=== PATIENT | male | born 1955 | race Caucasian/White ===

== ENCOUNTER 2018-12-31 11:40 | Day surgery (SDC) | payer MEDICARE ==
[~2018-12-31] VITALS: Ht 175.3 cm; Wt 112.0 kg
[~2018-12-31 11:40] MED LIST: CEPH500 PO; HYDACE5 PO; IBUP800 PO
[2018-12-31 11:58] LABS: BASOPHILS ABSOLUTE AUTO 0.06 K/mm3 (0.00-0.23); BASOPHILS PERCENT AUTO 1 % (0-2); EOSINOPHILS ABSOLUTE AUTO 0.21 K/mm3 (0.00-0.68); EOSINOPHILS PERCENT AUTO 2 % (0-6); Hematocrit 37.7 % (37.0-53.0); Hemoglobin 12.6 g/dL (13.5-17.5); IMMATURE GRAN ABSOLUTE AUTO 0.04 K/mm3 (0.00-0.10); IMMATURE GRAN PERCENT AUTO 0 % (0-1); LYMPHOCYTES ABSOLUTE AUTO 3.24 K/mm3 (0.84-5.20); LYMPHOCYTES PERCENT AUTO 27 % (21-46); MONOCYTES ABSOLUTE AUTO 0.97 K/mm3 (0.16-1.47); MONOCYTES PERCENT AUTO 8 % (4-13); Mean Corpuscular HGB 34.7 pg (26.0-34.0); Mean Corpuscular HGB Conc 33.4 g/dL (31.5-36.5); Mean Corpuscular Volume 104 fL (80-100); Mean Platelet Volume 9.8 fL (9.1-12.4); NEUTROPHILS ABSOLUTE AUTO 7.31 K/mm3 (1.96-9.15); NEUTROPHILS PERCENT AUTO 62 % (41-73); Platelet Count 206 K/mm3 (150-400); RDW Coefficient Variation 12.3 % (11.7-14.2); RDW Standard Deviation 47.7 fL (35.1-46.3); Red Blood Cell Count 3.63 M/mm3 (4.30-5.90); White Blood Cell Count 11.83 K/mm3 (4.00-11.30)
[2018-12-31 12:13] LABS: International Normalized Ratio 0.95; Prothrombin Time Results 10.1 Sec (9.7-11.5)
[2018-12-31] MEDS ORDERED: LISI20 PO (12:54)
[2018-12-31] MEDS ORDERED: HYDCHL25 PO (12:55)
[2018-12-31] MEDS ORDERED: ZESTRIL40 MG PO (12:55)
[2018-12-31] MEDS ORDERED: VITAMIN D-32000 UNIT PO (12:56)
[2018-12-31] MEDS ORDERED: Wellbutrin Sr200 MG PO (12:56)
[2018-12-31] MEDS ORDERED: DICL75ER PO (12:56)
[2018-12-31] MEDS ORDERED: Zocor20 MG PO (12:57)
[2018-12-31 13:14] LABS: Bun/Creatinine Ratio 17.5 (12.0-20.0); Calcium, Blood 9.3 mg/dL (8.5-10.1); Creatinine, Blood 1.43 mg/dL (0.60-1.20); Potassium, Blood 4.3 mmol/L (3.5-5.5)
--- NOTE | 2018-12-31 14:41 | NUR ---
FENTANYL 50 MCG AND VERSED 1 MG IV GIVEN FOR 10/10 RIGHT FOOT PAIN.
--- NOTE | 2018-12-31 15:04 | NUR ---
FENTANYL 50 CMG IV AND VERSED 1 MG IV GIVEN FOR 10/10 RIGHT FOOT PAIN.
--- NOTE | 2018-12-31 18:08 | NUR ---
The pt arrived from the heart center at 1750, into room PCU 9. Left groin was visualized, and noted to be without bleeding, bruising, hematoma, or swelling. Distal pulses on the right foot were doppled by Dr. Campbell in the room at 1805. The pt is awake, alert, oriented, cooperative, and without any voiced needs or complaints. States that his left foot is much less painful than it was before the procedure. Pt was educated regarding bedrest for 2 hours and plan for discharge in 3 hours.
--- NOTE | 2018-12-31 18:23 | NUR ---
Distal pulses checked by doppler, left groin site also checked. NO changes from prior assessment. Right foot has cyanosis of the first 2 toes, and the pt states that his right fooot is very tender, even to the doppler touch.
--- NOTE | 2018-12-31 18:46 | NUR ---
LEFT GROIN SITE WITHOUT CHANGES. DISTAL PULSES NOTED BY DOPPLER, NO CHANGES NOTED. CYANOSIS REMAINS UNCHANGED FROM WHEN DR. RAWLS WAS HERE TO SEE THE PT POST OP.
--- NOTE | 2018-12-31 19:29 | NUR ---
Distal pulses in the right foot are doppled, cyanosis of the toes remains. Pt states tenderness in the right foot. Left groin site remains unchanged from previous assessments. Left foot is unremarkable, with pink toes, warmth, and brisk cap refill. Pt states he has had a prior revascularization of the left leg before this procedure. Pt had dinner, ate with a good appetite. States that he is eager to go home this evening. States that he has to get someone to a cancer procudure tomorrow. The pt was told that the doctor has prescribed Xarelto for him, which he should start to take tomorrow morning. The pt stated that he will start it tomorrow whenever he gets around to picking it up. States that he has taken xarelto in the past and that he is familiar with it.
[2018-12-31] MEDS ORDERED: XARELTO2.5 MG PO (20:02)
--- NOTE | 2018-12-31 20:55 | NUR ---
PATIENT AMBULATED AND GROIN SITE CHECKED PATIENT AMBULATED 50 YARDS X2, SAT UP IN CHAIR WITH NO CHANGES TO THE R GROIN SITE. NO HEMATOMA, SWELLING, BRUISING OR BLEEDING NOTED. PT DENIES PAIN ON PALPATION AROUND SITE AND ABDOMEN. EDUCATED ON ADVERSE REACTIONS AND GROIN SITE COMPLICATIONS. PT VERBALIZED UNDERSTANDING.
--- NOTE | 2018-12-31 21:21 | NUR ---
DISCHARGE NOTE: ASSUMED CARE OF PATIENT AT APPROXIMATELY 1900 FROM RK Teague RN. PATIENT S/P LEFT GROIN FEMORAL ACCESS FOR REVASC IN RIGHT LEG. NSR ON TELE; OXYGEN SATURATION ABOVE 90% ON ROOM AIR. LEFT GROIN SITE WNL; NO BLEEING, HEMATOMA OR BRUISING NOTED; SOFT AND NONTENDER. PATIENT EXTENDED RECOVERY UNTIL 2099; DISCHARGE ORDER IN PLACE. SEE PREVIOUS NURSING NOTE FOR AMBULATION BY CONSUMER SALES REPRESENTATIVE AND OTHER RN CASSANDRA. PATIENT'S RIGHT FOOT PURPLE; PUSLES ONLY BY DOPPLER. PATIENT REPORTS FOOT PAIN GREATLY REDUCED AFTER SURGERY TODAY. PIV S/L AFTER NS INFUSED; REMOVED BY THIS RN BEFORE DISCHARGE. THIS RN WENT OVER DISCHARGE INSTRUCTIONS, MEDICATIONS AND FEMORAL ACCESS CARE INSTRUCTIONS; ALL SIGNED BY PATIENT; NO QUESTIONS. PATIENT ESCORTED OUT OF UNIT VIA WHEEL CHAIR BY THIS RN WITH DISCHARGE PACKET AND ALL BELONGINGS. EX PICKED PATIENT UP.
== END 2018-12-31 21:13 | disposition home or self-care (01) ==
LOC: MHTC 11:40 → PCU 18:08 → MHTC 21:13 → PCU 21:13
PROVIDERS: Radiology Diagnostic Radiology
PROC: 047K3D1 Dilation of Right Femoral Artery with Intraluminal Device, using Drug-Coated Balloon, Percutaneous Approach (ICD-10-PCS; principal; 2018-12-31)
PROC: 047P3ZZ Dilation of Right Anterior Tibial Artery, Percutaneous Approach (ICD-10-PCS; 2018-12-31)
DX: I70.203 Unspecified atherosclerosis of native arteries of extremities, bilateral legs (principal); I10 Essential (primary) hypertension; I70.0 Atherosclerosis of aorta; E78.5 Hyperlipidemia, unspecified; J44.9 Chronic obstructive pulmonary disease, unspecified; F17.210 Nicotine dependence, cigarettes, uncomplicated; E66.9 Obesity, unspecified; Z79.899 Other long term (current) drug therapy; Z68.36 Body mass index [BMI] 36.0-36.9, adult
CPT/HCPCS: 36415; 37224; 37228; 75625; 75716; 75774; 80048; 85025; 85610; 99152; 99153; C1725; C1760; C1769; C1887; C1894; C2623; J0360; J1644; J2250; J3010; J7030; Q9967

== ENCOUNTER 2019-01-16 15:07 | Inpatient (IN) | payer MEDICARE, OTHER ==
[~2019-01-16] VITALS: Ht 177.8 cm; Wt 112.0 kg
[~2019-01-16 15:07] MED LIST changes: +Cephalexin500 M1 PO; +DICL75ER PO; +HYDCHL25 PO; +Simvastatin40 MG PO; +VITAMIN D-32000 UNIT PO; +Wellbutrin Sr200 MG PO; +XARELTO2.5 MG PO; +ZESTRIL40 MG PO
[2019-01-16 15:57] LABS: BASOPHILS ABSOLUTE AUTO 0.04 K/mm3 (0.00-0.23); BASOPHILS PERCENT AUTO 0 % (0-2); EOSINOPHILS ABSOLUTE AUTO 0.16 K/mm3 (0.00-0.68); EOSINOPHILS PERCENT AUTO 2 % (0-6); Hematocrit 31.8 % (37.0-53.0); Hemoglobin 10.8 g/dL (13.5-17.5); IMMATURE GRAN ABSOLUTE AUTO 0.04 K/mm3 (0.00-0.10); IMMATURE GRAN PERCENT AUTO 0 % (0-1); LYMPHOCYTES ABSOLUTE AUTO 2.58 K/mm3 (0.84-5.20); LYMPHOCYTES PERCENT AUTO 25 % (21-46); MONOCYTES ABSOLUTE AUTO 0.87 K/mm3 (0.16-1.47); MONOCYTES PERCENT AUTO 8 % (4-13); Mean Corpuscular HGB 33.9 pg (26.0-34.0); Mean Corpuscular Volume 100 fL (80-100); Mean Platelet Volume 9.3 fL (9.1-12.4); NEUTROPHILS ABSOLUTE AUTO 6.63 K/mm3 (1.96-9.15); NEUTROPHILS PERCENT AUTO 64 % (41-73); Platelet Count 284 K/mm3 (150-400); RDW Coefficient Variation 11.9 % (11.7-14.2); RDW Standard Deviation 43.8 fL (35.1-46.3); Red Blood Cell Count 3.19 M/mm3 (4.30-5.90); White Blood Cell Count 10.32 K/mm3 (4.00-11.30)
[2019-01-16 16:28] LABS: Alanine Aminotransfer (ALT/SGP 90 U/L (12-78); Albumin, Blood 3.2 g/dL (3.4-5.0); Albumin/Globulin Ratio 0.8 (0.8-1.8); Alk Phos 81 U/L (50-136); Anion Gap 7 mmol/L (6-16); Aspartate Aminotrans (AST/SGOT 84 U/L (12-37); Bilirubin, Total 0.2 mg/dL (0.1-1.0); Blood Urea Nitrogen 27 mg/dL (8-24); Bun/Creatinine Ratio 25.2 (12.0-20.0); CO2, Blood 27 mmol/L (21-32); Calcium, Blood 9.1 mg/dL (8.5-10.1); Chloride, Blood 92 mmol/L (98-108); Creatinine, Blood 1.07 mg/dL (0.60-1.20); Glomerular Filtration Rate >60 (60-); Glucose, Blood 98 mg/dL (70-99); Potassium, Blood 4.2 mmol/L (3.5-5.5); Sodium, Blood 126 mmol/L (136-145); Total Protein, Blood 7.2 g/dL (6.4-8.2)
[2019-01-16] MEDS ORDERED: ALBU90OI INH (18:01)
[2019-01-16] MEDS ORDERED: HYDR1TAB94 PO (18:09)
--- NOTE | 2019-01-16 21:11 | NUR ---
ADMISSION: PATIENT IS RECIEVED FROM ER VIA STRETCHER, ABLE TO STAND AND PIVOT TO THE BED. ORIENTED TO ROOM AND CALL GARCIA. RATING PAIN IN RIGHT FOOT.
--- NOTE | 2019-01-16 23:35 | NUR ---
PAIN: NORCO WAS GIVEN FOR PAIN WITH FAIR EFFECT. PATIENT DENIES NEED OF MORE PAIN MEDICATION AT THIS TIME AND IS RESTING IN BED WITH EYE'S CLOSED.
--- NOTE | 2019-01-17 02:22 | NUR ---
PAIN/LABS: PATIENT HAD FAIR EFFECT FROM ORAL PAIN MEDICATION. IT IS ALSO NOTIED THAT SODIUM IS 126. PATIENT REQUESTED COUGH DROPS FOR SMOKERS COUGH. SERAFIN RICCI SHIP ENGINES OPERATING ENGINEER WAS NOTIFIED OF ABOVE AND ORDERS FOR PRN COUGH GTT, IV DILAUDID 0.5 MG X1 AND MONITOR SODIUM LEVEL AT THIS TIME.
[2019-01-17 06:01] LABS: Alanine Aminotransfer (ALT/SGP 79 U/L (12-78); Albumin, Blood 3.1 g/dL (3.4-5.0); Albumin/Globulin Ratio 0.8 (0.8-1.8); Alk Phos 79 U/L (50-136); Anion Gap 8 mmol/L (6-16); Aspartate Aminotrans (AST/SGOT 69 U/L (12-37); Bilirubin, Total 0.2 mg/dL (0.1-1.0); Blood Urea Nitrogen 28 mg/dL (8-24); Bun/Creatinine Ratio 22.2 (12.0-20.0); CO2, Blood 27 mmol/L (21-32); Chloride, Blood 93 mmol/L (98-108); Creatinine, Blood 1.26 mg/dL (0.60-1.20); Globulin, Blood 3.9 g/dL (2.2-4.0); Glomerular Filtration Rate >60 (60-); Glucose, Blood 88 mg/dL (70-99); Potassium, Blood 4.3 mmol/L (3.5-5.5); Sodium, Blood 128 mmol/L (136-145)
--- NOTE | 2019-01-17 07:32 | NUR ---
SHIFT SUMMARY: PATIENT CONTINUES TO REPORT R FOOT PAIN WITH INTERMITTENT SPIKES UP TO 10/10, SPIKES OCCURING WITH ACTIVITY. URINAL WAS GIVEN AND BEST REST WAS ENCOURAGED BUT PATIENT REFUSES AND USED BATHROOM TO VOID. SODIUM THIS AM IS 128, PATIENT REMAINS ASYMPTOMATIC.
--- NOTE | 2019-01-17 17:50 | NUR ---
PATIENT IS ALERT AND ORIENTED AND COOPERATIVE WITH CARE. HE CALLS APPROPRIATELY. DR. BLACKWELL SAW THE PATIENT THIS AFTERNOON, HE ASKED DR. CAMPBELL TO CONSULT THE PATIENT. DR. CAMPBELL IS GOING TO PERFORM A BKA ON THE PATIENT TOMORROW MID MORNING. THIS PATIENT WILL BE NPO AFTER MIDNIGHT. HE HAS AGREED TO THE PROCEDURE. PATIENT COMPLAINS OF PAIN IN HIS RIGHT FOOT, TREATED PER EMAR. WILL CONTINUE TO MONITOR.
[2019-01-18 05:30] LABS: BASOPHILS ABSOLUTE AUTO 0.04 K/mm3 (0.00-0.23); BASOPHILS PERCENT AUTO 1 % (0-2); EOSINOPHILS PERCENT AUTO 3 % (0-6); Hematocrit 31.8 % (37.0-53.0); Hemoglobin 10.8 g/dL (13.5-17.5); IMMATURE GRAN ABSOLUTE AUTO 0.03 K/mm3 (0.00-0.10); IMMATURE GRAN PERCENT AUTO 0 % (0-1); LYMPHOCYTES ABSOLUTE AUTO 2.01 K/mm3 (0.84-5.20); LYMPHOCYTES PERCENT AUTO 25 % (21-46); MONOCYTES PERCENT AUTO 10 % (4-13); Mean Corpuscular Volume 100 fL (80-100); Mean Platelet Volume 9.4 fL (9.1-12.4); NEUTROPHILS ABSOLUTE AUTO 4.88 K/mm3 (1.96-9.15); NEUTROPHILS PERCENT AUTO 61 % (41-73); Platelet Count 254 K/mm3 (150-400); RDW Coefficient Variation 11.9 % (11.7-14.2); RDW Standard Deviation 43.8 fL (35.1-46.3); Red Blood Cell Count 3.18 M/mm3 (4.30-5.90); White Blood Cell Count 7.96 K/mm3 (4.00-11.30)
[2019-01-18 05:54] LABS: Anion Gap 8 mmol/L (6-16); Blood Urea Nitrogen 27 mg/dL (8-24); Bun/Creatinine Ratio 23.9 (12.0-20.0); CO2, Blood 26 mmol/L (21-32); Calcium, Blood 9.1 mg/dL (8.5-10.1); Chloride, Blood 95 mmol/L (98-108); Creatinine, Blood 1.13 mg/dL (0.60-1.20); Glomerular Filtration Rate >60 (60-); Glucose, Blood 93 mg/dL (70-99); Potassium, Blood 4.8 mmol/L (3.5-5.5); Sodium, Blood 129 mmol/L (136-145)
--- NOTE | 2019-01-18 08:20 | NUR ---
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 PT is smokere cessation encouraged. Lung sound coarse and wheezy. PT mediucated several times for RT le pain with helpful effect. Was discussing hope to recover from procedure and get on with life.
--- NOTE | 2019-01-18 11:01 | NUR ---
PT LEFT UNIT VIA BED AT 1015 FOR SURGICAL PROCEDURE.
--- NOTE | 2019-01-18 13:55 | NUR ---
PT ARRIVED TO UNIT AT APROX 1330 FROM PACU. RECIEVED REPORT FROM MED FLOOR RN AND VEHICLE ASSEMBLER. POST OP R BKA, DRESSING C/D/I. PT DENIES PAIN AT THIS TIME.
--- NOTE | 2019-01-18 14:19 | NUR ---
REPORT GIVEN TO SURGICAL FLOOR RNGUILLERMO.
[2019-01-18 15:04] LABS: Percent Saturation 19.2 % (20.0-50.0)
--- NOTE | 2019-01-18 18:02 | NUR ---
SHIFT SUMMARY PT POD 0 R BKA, STUMP SOCK C/D/I. PT MEDICATED ONCE FOR PAIN PER EMAR. PT EVAL THIS AFTERNOON-ABLE TO INDEPENDENTLY AMBULATE WITH FWW IN ROOM PER EVAL.
--- NOTE | 2019-01-19 02:20 | NUR ---
PATIENT IS UP WITH FWW AND STANDBY ASSIST AT RAIL OPERATIONS CONTROLLER AND RN REQUEST. HE IS STEADY AND IS ABLE TO BALANCE ON HIS LT LEG VERY WELL. RT BKA STUMP IS CLEAR OF ANY DRAINAGE.
[2019-01-19 04:20] LABS: BASOPHILS ABSOLUTE AUTO 0.03 K/mm3 (0.00-0.23); BASOPHILS PERCENT AUTO 0 % (0-2); EOSINOPHILS ABSOLUTE AUTO 0.01 K/mm3 (0.00-0.68); EOSINOPHILS PERCENT AUTO 0 % (0-6); Hematocrit 29.1 % (37.0-53.0); Hemoglobin 9.6 g/dL (13.5-17.5); IMMATURE GRAN ABSOLUTE AUTO 0.04 K/mm3 (0.00-0.10); IMMATURE GRAN PERCENT AUTO 0 % (0-1); LYMPHOCYTES PERCENT AUTO 21 % (21-46); MONOCYTES ABSOLUTE AUTO 0.98 K/mm3 (0.16-1.47); MONOCYTES PERCENT AUTO 9 % (4-13); Mean Corpuscular HGB 33.6 pg (26.0-34.0); Mean Corpuscular Volume 102 fL (80-100); Mean Platelet Volume 9.3 fL (9.1-12.4); NEUTROPHILS ABSOLUTE AUTO 7.15 K/mm3 (1.96-9.15); NEUTROPHILS PERCENT AUTO 69 % (41-73); Platelet Count 221 K/mm3 (150-400); RDW Coefficient Variation 12.2 % (11.7-14.2); Red Blood Cell Count 2.86 M/mm3 (4.30-5.90); White Blood Cell Count 10.41 K/mm3 (4.00-11.30)
[2019-01-19 04:49] LABS: Anion Gap 6 mmol/L (6-16); Blood Urea Nitrogen 25 mg/dL (8-24); Bun/Creatinine Ratio 23.6 (12.0-20.0); CO2, Blood 28 mmol/L (21-32); Calcium, Blood 8.6 mg/dL (8.5-10.1); Chloride, Blood 98 mmol/L (98-108); Creatinine, Blood 1.06 mg/dL (0.60-1.20); Glomerular Filtration Rate >60 (60-); Glucose, Blood 98 mg/dL (70-99); Potassium, Blood 4.4 mmol/L (3.5-5.5); Sodium, Blood 132 mmol/L (136-145)
--- NOTE | 2019-01-19 04:49 | NUR ---
PATIENT HAS HAD PAIN CONTROLED WITH PO MEDICATIONS. UP IN ROOM FWW AND WITH VERY LITTLE ASSISTANCE. EATING WITHOUT ISSUES. RT STUMP ELEVATED ON PILLOW WHILE IN BED. DRESSING IS CLEAN AND DRY, STUMP SOCK IS IN PLACE. NO OTHER ACUTE CHANGES.
--- NOTE | 2019-01-19 14:27 | NUR ---
DR KEYES TO SEE PT.
--- NOTE | 2019-01-19 15:53 | NUR ---
SHIFT SUMMARY: PT EATING AND DRINKING, VOIDING, AND PASSING GAS. PT BEEN ASSISTED WITH ADL'S PRN. PT BEEN MED FOR PAIN PRN.
--- NOTE | 2019-01-19 18:54 | NUR ---
PT HAD NO REACTION NOTED WITH TEST DOSE OF IV IRON. DR CAMPBELL HERE AND CHANGED DRESSING TO RLE.
--- NOTE | 2019-01-20 05:05 | NUR ---
SHIFT SUMMARY PT USES FWW WITH STANDBY ASSIST TO BATHROOM. STUMP SOCK IN PLACE, CDI, STUMP ELEVATED. PAIN MANAGED WITH NORCO PRN WITH OXYCODONE FOR BREAKTHROUGH PAIN ONCE. VOIDING WELL. PLAN FOR D/C HOME TODAY WITH HOME HEALTH.
--- NOTE | 2019-01-20 08:14 | NUR ---
PATIENT GAVE CONSENT FOR MECHANICAL ENGINEER TO PARTICIPATE IN CARE.
--- NOTE | 2019-01-20 08:33 | NUR ---
therapy in to see pt.
[2019-01-20] MEDS ORDERED: Norco 10-325 T1 EACH PO (13:22)
[2019-01-20] MEDS ORDERED: XARELTO20 MG PO (13:23)
--- NOTE | 2019-01-20 16:22 | NUR ---
DISCHARGED DC'D IV, CATHETER INTACT. REVIEWED DC PAPERWORK W/PT, ANXIOUS TO LEAVE BUT DID VERBALIZE UNDERSTANDING. LEFT UNIT IN WC W/POSSESSIONS IN HAND. MET RIDE OUTSIDE.
== END 2019-01-20 15:29 | disposition home health service (06) | DRG 240 ==
LOC: ER 15:07 → MEDS 15:08 → SURS 01-18 13:22
PROVIDERS: Internal Medicine; Nurse Practitioner Acute Care; Orthopaedic Surgery; Physician Assistant; ADMIT Internal Medicine
PROC: 3E02340 Introduction of Influenza Vaccine into Muscle, Percutaneous Approach (ICD-10-PCS; 2019-01-16)
PROC: 0Y6H0Z1 Detachment at Right Lower Leg, High, Open Approach (ICD-10-PCS; principal; 2019-01-18 10:30)
DX: I70.261 Atherosclerosis of native arteries of extremities with gangrene, right leg (principal); L03.115 Cellulitis of right lower limb; E87.1 Hypo-osmolality and hyponatremia; I25.10 Atherosclerotic heart disease of native coronary artery without angina pectoris; E78.5 Hyperlipidemia, unspecified; F41.9 Anxiety disorder, unspecified; F17.210 Nicotine dependence, cigarettes, uncomplicated; F32.9 Major depressive disorder, single episode, unspecified; I12.9 Hypertensive chronic kidney disease with stage 1 through stage 4 chronic kidney disease, or unspecified chronic kidney disease; N18.3 Chronic kidney disease, stage 3 (moderate); Z95.5 Presence of coronary angioplasty implant and graft; M19.90 Unspecified osteoarthritis, unspecified site; Z23 Encounter for immunization
CPT/HCPCS: 36415; 73630; 80048; 80053; 82728; 83540; 83550; 83605; 84145; 85025; 88307; 88311; 90686; 96365; 96366; 96375; 97110; 97116; 97162; 97165; 97530; 97535; 99284-25; A9270-GY; G0008; G0378; J0690; J1100; J1170; J1644; J1750; J2250; J2405; J2704; J3010; J7040; J7050; J7120

== ENCOUNTER → 2020-03-01 | Outpatient (CLI) | payer MEDICARE ==
[~2020-03-01] MED LIST changes: +ALBU90OI INH; +HYDR1TAB94 PO; +Norco 10-325 T1 EACH PO; +XARELTO20 MG PO
[2020-03-01 14:01] LABS: CHOL/HDL RATIO 4.7; Cholesterol 235 mg/dL (50-200); HDL Cholesterol 50 mg/dL (>39); LDL/HDL RATIO 2.5; Low Density Lipoprotein Chol 126 mg/dL (0-110); Triglycerides 297 mg/dL (30-160); Very Low Density Lipoprot Chol 59 mg/dL (6-32)
== END | disposition home or self-care (01) ==
LOC: LAB SHORT 11:20
PROVIDERS: Family Medicine
DX: E78.5 Hyperlipidemia, unspecified (principal)
CPT/HCPCS: 80061

== ENCOUNTER → 2021-12-14 | Outpatient (CLI) | payer MEDICARE, OTHER | END | disposition home or self-care (01) | LOC: LAB 14:20 → LAB SHORT 14:20 | DX: T87.43 Infection of amputation stump, right lower extremity (principal) | CPT/HCPCS: 87070; 87075; 87076; 87185; 87205 ==

== ENCOUNTER → 2021-12-16 | Outpatient (CLI) | payer MEDICARE | END | disposition home or self-care (01) | LOC: LAB SHORT 14:53 → LAB 14:53 | DX: T87.43 Infection of amputation stump, right lower extremity (principal) | CPT/HCPCS: 87070; 87075; 87077; 87186; 87205 ==

== ENCOUNTER 2022-01-03 01:36 | Day surgery (SDC) | payer MEDICARE | END 2022-01-03 23:41 | disposition home or self-care (01) | LOC: WOUND 01:36 | DX: T87.43 Infection of amputation stump, right lower extremity (principal); L97.812 Non-pressure chronic ulcer of other part of right lower leg with fat layer exposed; F17.200 Nicotine dependence, unspecified, uncomplicated; L89.90 Pressure ulcer of unspecified site, unspecified stage; I73.9 Peripheral vascular disease, unspecified | CPT/HCPCS: A9270; G0463 ==

== ENCOUNTER 2022-01-10 03:05 | Day surgery (SDC) | payer MEDICARE | END 2022-01-10 23:33 | disposition home or self-care (01) | LOC: WOUND 03:05 | DX: T87.43 Infection of amputation stump, right lower extremity (principal); T87.89 Other complications of amputation stump; L89.893 Pressure ulcer of other site, stage 3 | CPT/HCPCS: A9270 ==

== ENCOUNTER 2022-01-17 04:05 | Day surgery (SDC) | payer MEDICARE | END 2022-01-17 23:22 | disposition home or self-care (01) | LOC: WOUND 04:05 | DX: L89.893 Pressure ulcer of other site, stage 3 (principal); T87.43 Infection of amputation stump, right lower extremity; L97.812 Non-pressure chronic ulcer of other part of right lower leg with fat layer exposed; I73.9 Peripheral vascular disease, unspecified; F17.210 Nicotine dependence, cigarettes, uncomplicated | CPT/HCPCS: A9270; G0463 ==

== ENCOUNTER 2022-01-24 08:00 | Day surgery (SDC) | payer MEDICARE | END 2022-01-24 23:59 | disposition home or self-care (01) | LOC: WOUND 08:00 | DX: T87.43 Infection of amputation stump, right lower extremity (principal); L97.812 Non-pressure chronic ulcer of other part of right lower leg with fat layer exposed; F17.200 Nicotine dependence, unspecified, uncomplicated; L89.90 Pressure ulcer of unspecified site, unspecified stage; I73.9 Peripheral vascular disease, unspecified | CPT/HCPCS: A9270; G0463 ==

== ENCOUNTER 2022-01-30 09:35 | Day surgery (SDC) | payer MEDICARE, OTHER ==
[~2022-01-30] VITALS: Ht 175.3 cm; Wt 95.4 kg
[2022-01-30] MEDS ORDERED: Aspir 8181 MG PO (10:20)
[2022-01-30] MEDS ORDERED: ATOR20 PO (10:21)
[2022-01-30] MEDS ORDERED: GABA300 PO (10:22)
--- NOTE | 2022-01-30 14:12 | NUR ---
pt report from jacy hunter. bilat angio-seals to r and l groin. both sites soft and non-tender per pt. no bleeding noted.
--- NOTE | 2022-01-30 15:05 | NUR ---
ASSUMED CARE OF PT. PT AWAKE AND CONVERSING APPROPRIATELY; DENIES PAIN POST PROCEDURE. MONITOR SR 80'S, B/P 132/78, SPO2 100% RA. L GROIN NO SWELLING/HEMATOMA, TEGADERM DRSG INTACT; ANGIO SEAL DEPLOYED, LLE DOPPLER PULSES X 2. R GROIN NO SWELLING/HEMATOMA, TEGADERM DRSG INTACT, ANGIO SEAL DEPLOYED.
--- NOTE | 2022-01-30 16:20 | NUR ---
PT DRESSED SELF WITHOUT ISSUE, SITES UNCHANGED; IV REMOVED-CANNULA INTACT.
--- NOTE | 2022-01-30 16:30 | NUR ---
PT RECEIVED DISCHARGE INSTRUCTIONS, MED LIST AND AFTER CARE INSTRUCTIONS; VERBALIZED GOOD UNDERSTANDING. PT LEFT FACILITY VIA W/C, CONDITION STABLE.
== END 2022-01-30 16:30 | disposition home or self-care (01) ==
LOC: MHTC 09:35
DX: I70.221 Atherosclerosis of native arteries of extremities with rest pain, right leg (principal); I70.213 Atherosclerosis of native arteries of extremities with intermittent claudication, bilateral legs; E78.5 Hyperlipidemia, unspecified; I10 Essential (primary) hypertension; Z89.511 Acquired absence of right leg below knee; F17.210 Nicotine dependence, cigarettes, uncomplicated
CPT/HCPCS: 37252; 76937; 85347; 99152; 99153; C1725; C1753; C1769; C1874; C1876; C1887; C1894; J0360; J1644; J2250; J3010; J7030; J7050; Q9967

== ENCOUNTER 2022-01-31 03:32 | Day surgery (SDC) | payer MEDICARE ==
[~2022-01-31 03:32] MED LIST changes: +ATOR20 PO; +Aspir 8181 MG PO; +GABA300 PO
== END 2022-01-31 22:45 | disposition home or self-care (01) ==
LOC: WOUND 03:32
DX: L89.893 Pressure ulcer of other site, stage 3 (principal); L97.812 Non-pressure chronic ulcer of other part of right lower leg with fat layer exposed; T87.43 Infection of amputation stump, right lower extremity; F17.200 Nicotine dependence, unspecified, uncomplicated; I73.9 Peripheral vascular disease, unspecified; Z89.511 Acquired absence of right leg below knee
CPT/HCPCS: A9270; G0463

== ENCOUNTER 2022-02-07 00:45 | Day surgery (SDC) | payer MEDICARE | END 2022-02-07 23:00 | disposition home or self-care (01) | LOC: WOUND 00:45 | DX: T87.43 Infection of amputation stump, right lower extremity (principal); L89.893 Pressure ulcer of other site, stage 3; L97.812 Non-pressure chronic ulcer of other part of right lower leg with fat layer exposed; F17.200 Nicotine dependence, unspecified, uncomplicated; I70.203 Unspecified atherosclerosis of native arteries of extremities, bilateral legs | CPT/HCPCS: A9270; G0463 ==

== ENCOUNTER 2022-02-14 02:28 | Day surgery (SDC) | payer MEDICARE | END 2022-02-14 23:07 | disposition home or self-care (01) | LOC: WOUND 02:28 | DX: T87.43 Infection of amputation stump, right lower extremity (principal); L08.9 Local infection of the skin and subcutaneous tissue, unspecified; L89.893 Pressure ulcer of other site, stage 3; F17.200 Nicotine dependence, unspecified, uncomplicated; I73.9 Peripheral vascular disease, unspecified | CPT/HCPCS: A9270 ==

== ENCOUNTER 2022-02-21 02:58 | Day surgery (SDC) | payer MEDICARE | END 2022-02-21 23:07 | disposition home or self-care (01) | LOC: WOUND 02:58 | DX: T87.43 Infection of amputation stump, right lower extremity (principal); L89.893 Pressure ulcer of other site, stage 3; T87.89 Other complications of amputation stump; F17.200 Nicotine dependence, unspecified, uncomplicated; I70.203 Unspecified atherosclerosis of native arteries of extremities, bilateral legs | CPT/HCPCS: 99406; A9270 ==

== ENCOUNTER 2022-02-28 02:13 | Day surgery (SDC) | payer MEDICARE | END 2022-02-28 22:46 | disposition home or self-care (01) | LOC: WOUND 02:13 | DX: T87.43 Infection of amputation stump, right lower extremity (principal); L97.812 Non-pressure chronic ulcer of other part of right lower leg with fat layer exposed; L89.90 Pressure ulcer of unspecified site, unspecified stage; F17.200 Nicotine dependence, unspecified, uncomplicated; I70.203 Unspecified atherosclerosis of native arteries of extremities, bilateral legs | CPT/HCPCS: 99406; A9270 ==

== ENCOUNTER 2022-03-28 01:26 | Day surgery (SDC) | payer MEDICARE | END 2022-03-28 22:48 | disposition home or self-care (01) | LOC: WOUND 01:26 | DX: L89.899 Pressure ulcer of other site, unspecified stage (principal); T87.43 Infection of amputation stump, right lower extremity; L89.893 Pressure ulcer of other site, stage 3; L97.812 Non-pressure chronic ulcer of other part of right lower leg with fat layer exposed; F17.200 Nicotine dependence, unspecified, uncomplicated; I70.203 Unspecified atherosclerosis of native arteries of extremities, bilateral legs; X58.XXXA Exposure to other specified factors, initial encounter | CPT/HCPCS: 99406; A9270 ==

== ENCOUNTER 2022-04-18 01:06 | Day surgery (SDC) | payer MEDICARE | END 2022-04-18 23:05 | disposition home or self-care (01) | LOC: WOUND 01:06 | DX: T87.43 Infection of amputation stump, right lower extremity (principal); L97.812 Non-pressure chronic ulcer of other part of right lower leg with fat layer exposed; I70.203 Unspecified atherosclerosis of native arteries of extremities, bilateral legs; F17.200 Nicotine dependence, unspecified, uncomplicated | CPT/HCPCS: 99406; A9270 ==

== ENCOUNTER 2022-05-23 00:59 | Day surgery (SDC) | payer MEDICARE | END 2022-05-23 22:45 | disposition home or self-care (01) | LOC: WOUND 00:59 | DX: T87.43 Infection of amputation stump, right lower extremity (principal); L97.812 Non-pressure chronic ulcer of other part of right lower leg with fat layer exposed; F17.200 Nicotine dependence, unspecified, uncomplicated; I70.203 Unspecified atherosclerosis of native arteries of extremities, bilateral legs | CPT/HCPCS: 99406; A9270; G0463 ==

== ENCOUNTER 2022-05-30 01:57 | Day surgery (SDC) | payer MEDICARE, OTHER | END 2022-05-30 22:50 | disposition home or self-care (01) | LOC: WOUND 01:57 | DX: T87.43 Infection of amputation stump, right lower extremity (principal); F17.200 Nicotine dependence, unspecified, uncomplicated; I70.203 Unspecified atherosclerosis of native arteries of extremities, bilateral legs; L03.115 Cellulitis of right lower limb; L89.893 Pressure ulcer of other site, stage 3 | CPT/HCPCS: 99406; A9270 ==

== ENCOUNTER 2022-06-20 02:47 | Day surgery (SDC) | payer MEDICARE | END 2022-06-20 22:58 | disposition home or self-care (01) | LOC: WOUND 02:47 | DX: T87.43 Infection of amputation stump, right lower extremity (principal); L89.894 Pressure ulcer of other site, stage 4; L97.812 Non-pressure chronic ulcer of other part of right lower leg with fat layer exposed; I70.203 Unspecified atherosclerosis of native arteries of extremities, bilateral legs; L03.115 Cellulitis of right lower limb | CPT/HCPCS: 99406; A9270 ==

== ENCOUNTER 2022-06-27 02:12 | Day surgery (SDC) | payer MEDICARE | END 2022-06-27 22:49 | disposition home or self-care (01) | LOC: WOUND 02:12 | DX: T87.43 Infection of amputation stump, right lower extremity (principal); B99.9 Unspecified infectious disease; L89.894 Pressure ulcer of other site, stage 4; L89.899 Pressure ulcer of other site, unspecified stage; L97.812 Non-pressure chronic ulcer of other part of right lower leg with fat layer exposed; L89.90 Pressure ulcer of unspecified site, unspecified stage; F17.200 Nicotine dependence, unspecified, uncomplicated; L03.115 Cellulitis of right lower limb; L97.212 Non-pressure chronic ulcer of right calf with fat layer exposed; I70.203 Unspecified atherosclerosis of native arteries of extremities, bilateral legs; Y83.5 Amputation of limb(s) as the cause of abnormal reaction of the patient, or of later complication, without mention of misadventure at the time of the procedure | CPT/HCPCS: 99406; A9270; G0463 ==

== ENCOUNTER 2022-07-04 06:47 | Day surgery (SDC) | payer MEDICARE ==
[2022-07-04] VITALS (11 sets, daily range): BP systolic 107–146; BP diastolic 65–102
[~2022-07-04] VITALS: Ht 172.7 cm; Wt 90.9 kg
[~2022-07-04 06:47] MED LIST changes: +NARCAN4 M1; +OXYACE7.5T PO; +SULTRIDS PO; +VENL75ER PO
[2022-07-04] MEDS ORDERED: EFFEXOR XR150 MG PO (07:15)
--- NOTE | 2022-07-04 10:40 | NUR ---
PATIENT ARRIVED TO RECOVERY ROOM CONVERSING APPROPRIATELY WITH HOB FLAT. L RADIAL TR BAND FULLY INFLATED, C/D/I SOFT/NONTENDER, NO EVIDENCE OF HEMATOMA. L ANGIO SEAL C/D/I, NO EVIDENCE OF HEMATOMA. R GROIN SITE WITH IFEOMA PATCH, OLD BLEEDING MARKED, SITE C/D/I SOFT/NONTENDER, NO EVIDENCE OF CURRENT BLEEDING. VSS ON ROOM AIR. WILL CONTINUE TO MONITOR 3 ACCESS SITES.
--- NOTE | 2022-07-04 12:06 | NUR ---
1200 PATIENT REPOSITIONED UP IN THE BED BY TWO RN ASSIST. HOB UP TO 15 DEGREES TO HELP WITH 6/10 BACK PAIN. NORMALLY TAKES OXYCODINE AT HOME FOR BACK PAIN. REPOSITION WITH PILLOWS. PATIENT IS TAKING SMALL SIPS OF COFFEE AND TOLERATING WELL.
--- NOTE | 2022-07-04 12:16 | NUR ---
ATTEMPTED TO BEGING REMOVING AIR FROM THE TR BAND AND BLEEDING OCCURED. REPLACED 2 ML OF AIR THAT WAS REMOVED AND SITE CLEANED. NO FURTHER BLEEDING NOTED. CONTINUE TO MONITOR.
--- NOTE | 2022-07-04 12:30 | NUR ---
PATIENT SITTING UP IN BED. GROIN SITES DRY AND INTACT. SOFT/NONTENDER, NO EVIDENCE OF BLEEDING. L RADIAL SITE C/D/I SOFT/NONTENDER. VSS ON ROOM AIR.
--- NOTE | 2022-07-04 12:45 | NUR ---
2 CC OF AIR REMOVED FROM L TR BAND RADIAL SITE. AREA C/D/I, SOFT/NONTENDER, NO EVIDENCE OF BLEEDING. PATIENT DENYING ANY PAIN. PATIENT ABLE TO VOID WITHOUT DIFFICULTY USING URINAL. VSS ON ROOM AIR.
--- NOTE | 2022-07-04 13:15 | NUR ---
ALL AIR REMOVED FROM L RADIAL TR BAND. SITE C/D/I, SOFT/NONTENDER, NO EVIDENCE OF HEMATOMA. L ANGIO SEAL GROIMN SITE C/D/I SOFT/NONTENDER, NO EVIDENCE OF BLEEDING. R GROIN SITE DRESSING INTACT, NO EVIDENCE OF BLEEDING OR HEMATOMA. PATIENT TOELRATING PO INTAKE WELL. VSS ON ROOM AIR.
--- NOTE | 2022-07-04 13:25 | NUR ---
DISCHARGE INSTRUCTIONS REVIEWED WITH PATIENT. ALL QUESTIONS WERE ANSWERED. PATIENT INFORMED THAT HE WILL BE SCHEDULED TO COME BACK FOR ANOTHER PROCEDURE. VSS ON ROOM AIR.
--- NOTE | 2022-07-04 13:56 | NUR ---
PATIENT DISCHARGED AT THIS TIME. ALL PATIENT BELONGINGS AND PAPERWORK LEFT WITH PATIENT. L RADIAL TR BAND REMOVED, CLOTH DOT APPLIED. SITE C/D/I, SOFT/NONTENDER, NO EVIDENCE OF HEMATOMA. R AND L GROIN SITES D/I, SOFT/NONTENDER, NO EVIDENCE OF HEMATOMA. PIV REMOVED WITHOUT DIFFICULTY, CATHETER INTACT. VSS ON ROOM AIR. PATIENT DISCHARGED HOME WITH SON ABLE TO PROVIDE TRANSPORTATION.
== END 2022-07-04 14:00 | disposition home or self-care (01) ==
LOC: MHTC 06:47
DX: I70.238 Atherosclerosis of native arteries of right leg with ulceration of other part of lower leg (principal); L97.812 Non-pressure chronic ulcer of other part of right lower leg with fat layer exposed; I10 Essential (primary) hypertension; E78.5 Hyperlipidemia, unspecified; F17.210 Nicotine dependence, cigarettes, uncomplicated; Z79.82 Long term (current) use of aspirin; Z79.899 Other long term (current) drug therapy
CPT/HCPCS: 37220; 75625; 75716; 75774; 76937; 99152; 99153; C1725; C1760; C1769; C1887; C1894; J0360; J1644; J2250; J3010; J7030; J7050; Q9967

== ENCOUNTER 2022-07-12 03:19 | Day surgery (SDC) | payer MEDICARE, OTHER ==
[~2022-07-12 03:19] MED LIST changes: +EFFEXOR XR150 MG PO; +LISI20 PO; -ZESTRIL40 MG PO
[2022-08-04] MEDS ORDERED: ATOR40TA PO (16:33)
== END 2022-07-12 22:42 | disposition home or self-care (01) ==
LOC: WOUND 03:19
DX: L89.894 Pressure ulcer of other site, stage 4 (principal); T87.43 Infection of amputation stump, right lower extremity; L97.812 Non-pressure chronic ulcer of other part of right lower leg with fat layer exposed; L97.212 Non-pressure chronic ulcer of right calf with fat layer exposed; L03.115 Cellulitis of right lower limb; I70.203 Unspecified atherosclerosis of native arteries of extremities, bilateral legs; F17.200 Nicotine dependence, unspecified, uncomplicated
CPT/HCPCS: 87071; 87077; 87147; 87186; 87205; 99406; A9270; G0463

== ENCOUNTER 2022-07-19 05:40 | Day surgery (SDC) | payer MEDICARE, OTHER ==
[~2022-07-19 05:40] MED LIST changes: -LISI20 PO; +ZESTRIL40 MG PO
== END 2022-07-19 23:07 | disposition home or self-care (01) ==
LOC: WOUND 05:40
DX: T87.43 Infection of amputation stump, right lower extremity (principal); L89.894 Pressure ulcer of other site, stage 4; L97.812 Non-pressure chronic ulcer of other part of right lower leg with fat layer exposed; L97.212 Non-pressure chronic ulcer of right calf with fat layer exposed; I70.203 Unspecified atherosclerosis of native arteries of extremities, bilateral legs; L03.115 Cellulitis of right lower limb; F17.200 Nicotine dependence, unspecified, uncomplicated
CPT/HCPCS: 99406; A9270; G0463

== ENCOUNTER 2022-07-25 02:40 | Day surgery (SDC) | payer MEDICARE | END 2022-07-25 23:05 | disposition home or self-care (01) | LOC: WOUND 02:40 | DX: T87.43 Infection of amputation stump, right lower extremity (principal); L97.812 Non-pressure chronic ulcer of other part of right lower leg with fat layer exposed; L89.90 Pressure ulcer of unspecified site, unspecified stage; L97.212 Non-pressure chronic ulcer of right calf with fat layer exposed; F17.200 Nicotine dependence, unspecified, uncomplicated; L03.115 Cellulitis of right lower limb; I70.203 Unspecified atherosclerosis of native arteries of extremities, bilateral legs | CPT/HCPCS: 99406; A9270; G0463 ==

== ENCOUNTER 2022-08-02 00:43 | Day surgery (SDC) | payer MEDICARE | END 2022-08-02 22:56 | disposition home or self-care (01) | LOC: WOUND 00:43 | DX: T87.43 Infection of amputation stump, right lower extremity (principal); L89.894 Pressure ulcer of other site, stage 4; L97.812 Non-pressure chronic ulcer of other part of right lower leg with fat layer exposed; F17.200 Nicotine dependence, unspecified, uncomplicated; L03.115 Cellulitis of right lower limb; L97.212 Non-pressure chronic ulcer of right calf with fat layer exposed; I70.203 Unspecified atherosclerosis of native arteries of extremities, bilateral legs | CPT/HCPCS: G0463 ==

== ENCOUNTER → 2022-08-05 | Outpatient (CLI) | payer MEDICARE ==
[~2022-08-05] MED LIST changes: +ATOR40TA PO; +Cyclobenzaprine5 MG PO; +LISI20 PO; +PLAVIX75 MG PO; -ZESTRIL40 MG PO
[2022-08-05 11:03] LABS: Hematocrit 27.4 % (37.0-53.0); Hemoglobin 9.4 g/dL (13.5-17.5); Mean Corpuscular HGB 32.9 pg (26.0-34.0); Mean Corpuscular HGB Conc 34.3 g/dL (31.5-36.5); Mean Corpuscular Volume 96 fL (80-100); Platelet Count 135 K/mm3 (150-400); RDW Coefficient Variation 14.2 % (11.7-14.2); RDW Standard Deviation 49.8 fL (35.1-46.3); Red Blood Cell Count 2.86 M/mm3 (4.30-5.90); White Blood Cell Count 7.99 K/mm3 (4.00-11.30)
[2022-08-05 11:17] LABS: International Normalized Ratio 0.96; Prothrombin Time Results 10.1 Sec (9.7-11.5)
[2022-08-05 11:19] LABS: Bun/Creatinine Ratio 16.5 (12.0-20.0); Calcium, Blood 8.9 mg/dL (8.5-10.1); Creatinine, Blood 0.73 mg/dL (0.60-1.20); Potassium, Blood 4.3 mmol/L (3.5-5.5)
[2022-08-05 11:57] LABS: BASOPHILS PERCENT MAN 0 % (0-2); EOSINOPHILS PERCENT MAN 0 % (0-6); LYMPHOCYTES ABSOLUTE MAN 1.51 K/mm3 (0.84-5.20); LYMPHOCYTES PERCENT MAN 19 % (21-46); MONOCYTES ABSOLUTE MAN 0.71 K/mm3 (0.16-1.47); MONOCYTES PERCENT MAN 9 % (4-13); NEUTROPHILS ABSOLUTE MAN 5.75 K/mm3 (1.96-9.15); SEG NEUTROPHILS PERCENT MAN 72 % (41-73); TOTAL CELLS COUNTED 100
== END | disposition home or self-care (01) ==
LOC: LAB SHORT 10:46
PROVIDERS: Radiology Diagnostic Radiology
DX: I70.223 Atherosclerosis of native arteries of extremities with rest pain, bilateral legs (principal); I70.213 Atherosclerosis of native arteries of extremities with intermittent claudication, bilateral legs
CPT/HCPCS: 80048; 85007; 85027; 85610

== ENCOUNTER 2022-08-08 06:53 | Day surgery (SDC) | payer MEDICARE ==
[2022-08-08] VITALS (8 sets, daily range): BP systolic 106–152; BP diastolic 56–85
[~2022-08-08] VITALS: Ht 172.7 cm; Wt 95.5 kg
[~2022-08-08 06:53] MED LIST changes: -Cyclobenzaprine5 MG PO; -PLAVIX75 MG PO
[2022-08-08] MEDS ORDERED: Cyclobenzaprine5 MG PO (07:34)
[2022-08-08] MEDS ORDERED: PLAVIX75 MG PO (07:35)
--- NOTE | 2022-08-08 10:30 | NUR ---
PATIENT ARRIVED TO RECOVERY ROOM LAYING FLAT IN BED. R GROIN SITE WITH MYNX CLOSURE DEVICE. SITE C/D/I SOFT/NONTENDER, NO EVIDENCE OF BLEEDING. VSS ON ROOM AIR
--- NOTE | 2022-08-08 11:44 | NUR ---
HOB ELEVATED 30 DEGREES. R GROIN SITE C/D/I SOFT/NONTENDER NO EVIDENCE OF BLEEDING
--- NOTE | 2022-08-08 12:43 | NUR ---
PATIENT TOLERATING PO INTAKE WELL. R GROIN SITE C/D/I SOFT/NONTENDER, NO EVIDENCE OF HEMATOMA. PT TOLERATING PO INTAKE WELL. VSS ON ROOM AIR.
--- NOTE | 2022-08-08 12:44 | NUR ---
PIV REMOVED WITHOUT DIFFICULTY, CATHETER INTACT. PATIENT VOIDING WITHOUT DIFFICULTY. R GROIN SITE C/D/I, SOFT/NONTENDER, NO EVIDENCE OF HEMATOMA. DISCHARGE INSTRUCTIONS REVIEWED WITH PATIENT.VSS ON ROOM AIR
--- NOTE | 2022-08-08 12:54 | NUR ---
PATIENT DISCHARGED HOME AT THIS TIME. ALL PATIENT BELONGINGS AND PAPERWORK LEFT WITH PATIENT. R GROIN SITE C/D/I SOFT/NONTENDER, NO EVIDENCE OF HEMATOMA. PATIENT WHEELED TO HOSPITAL ENTRANCE. PATIENT SON ABLE TO PROVIDE TRANSPORTATION HOME.
== END 2022-08-08 12:50 | disposition home or self-care (01) ==
LOC: MHTC 06:53
DX: T87.9 Unspecified complications of amputation stump (principal); I70.223 Atherosclerosis of native arteries of extremities with rest pain, bilateral legs; I70.213 Atherosclerosis of native arteries of extremities with intermittent claudication, bilateral legs; L97.912 Non-pressure chronic ulcer of unspecified part of right lower leg with fat layer exposed; F32.A Depression, unspecified; I10 Essential (primary) hypertension; F17.210 Nicotine dependence, cigarettes, uncomplicated
CPT/HCPCS: 37221; 37223; 75716; 75774; 76937; 99152; 99153; C1725; C1760; C1769; C1874; C1887; C1894; J0360; J1644; J2250; J3010; J7030; J7050; Q9967

== ENCOUNTER 2022-08-11 03:36 | Day surgery (SDC) | payer MEDICARE ==
[~2022-08-11 03:36] MED LIST changes: +Cyclobenzaprine5 MG PO; +PLAVIX75 MG PO
== END 2022-08-14 23:14 | disposition home or self-care (01) ==
LOC: WOUND 03:36
DX: L89.894 Pressure ulcer of other site, stage 4 (principal); T87.43 Infection of amputation stump, right lower extremity; L97.812 Non-pressure chronic ulcer of other part of right lower leg with fat layer exposed; L89.90 Pressure ulcer of unspecified site, unspecified stage; F17.200 Nicotine dependence, unspecified, uncomplicated; L03.115 Cellulitis of right lower limb; L97.212 Non-pressure chronic ulcer of right calf with fat layer exposed; I70.203 Unspecified atherosclerosis of native arteries of extremities, bilateral legs
CPT/HCPCS: A9270; G0463

== ENCOUNTER 2022-08-17 03:23 | Day surgery (SDC) | payer MEDICARE | END 2022-08-17 22:43 | disposition home or self-care (01) | LOC: WOUND 03:23 | DX: L89.894 Pressure ulcer of other site, stage 4 (principal); I70.203 Unspecified atherosclerosis of native arteries of extremities, bilateral legs; L97.812 Non-pressure chronic ulcer of other part of right lower leg with fat layer exposed; L97.212 Non-pressure chronic ulcer of right calf with fat layer exposed; T87.43 Infection of amputation stump, right lower extremity; F17.200 Nicotine dependence, unspecified, uncomplicated; L03.115 Cellulitis of right lower limb | CPT/HCPCS: 99406; A9270 ==

== ENCOUNTER → 2022-08-23 | Day surgery (SDC) | payer MEDICARE | LOC: WOUND 03:08 | DX: L89.894 Pressure ulcer of other site, stage 4 (principal); T87.43 Infection of amputation stump, right lower extremity; L97.812 Non-pressure chronic ulcer of other part of right lower leg with fat layer exposed; L89.90 Pressure ulcer of unspecified site, unspecified stage; F17.200 Nicotine dependence, unspecified, uncomplicated; L03.115 Cellulitis of right lower limb; L97.212 Non-pressure chronic ulcer of right calf with fat layer exposed; I70.203 Unspecified atherosclerosis of native arteries of extremities, bilateral legs | CPT/HCPCS: 99406; A9270; G0463 ==

== ENCOUNTER 2022-09-13 04:25 | Day surgery (SDC) | payer MEDICARE | END 2022-09-13 22:45 | disposition home or self-care (01) | LOC: WOUND 04:25 | DX: T87.43 Infection of amputation stump, right lower extremity (principal); L97.812 Non-pressure chronic ulcer of other part of right lower leg with fat layer exposed; L89.894 Pressure ulcer of other site, stage 4; F17.200 Nicotine dependence, unspecified, uncomplicated; L03.115 Cellulitis of right lower limb; L97.212 Non-pressure chronic ulcer of right calf with fat layer exposed; I70.203 Unspecified atherosclerosis of native arteries of extremities, bilateral legs | CPT/HCPCS: A9270; G0463 ==

== ENCOUNTER 2022-09-27 04:11 | Day surgery (SDC) | payer MEDICARE | END 2022-09-27 23:06 | disposition home or self-care (01) | LOC: WOUND 04:11 | DX: T87.43 Infection of amputation stump, right lower extremity (principal); L97.812 Non-pressure chronic ulcer of other part of right lower leg with fat layer exposed; L89.90 Pressure ulcer of unspecified site, unspecified stage; F17.200 Nicotine dependence, unspecified, uncomplicated; L03.115 Cellulitis of right lower limb; L97.212 Non-pressure chronic ulcer of right calf with fat layer exposed; I70.203 Unspecified atherosclerosis of native arteries of extremities, bilateral legs | CPT/HCPCS: G0463 ==

== ENCOUNTER 2022-10-04 01:28 | Day surgery (SDC) | payer MEDICARE, OTHER ==
[2022-10-11] MEDS ORDERED: ATOR40TA PO (07:42)
[2022-10-11] MEDS ORDERED: SULTRIDS PO ×2 (07:43→07:44)
== END 2022-10-04 23:18 | disposition home or self-care (01) ==
LOC: WOUND 01:28
DX: T87.43 Infection of amputation stump, right lower extremity (principal); T87.89 Other complications of amputation stump; L97.812 Non-pressure chronic ulcer of other part of right lower leg with fat layer exposed; L89.90 Pressure ulcer of unspecified site, unspecified stage; F17.200 Nicotine dependence, unspecified, uncomplicated; L03.115 Cellulitis of right lower limb; L97.212 Non-pressure chronic ulcer of right calf with fat layer exposed; I70.203 Unspecified atherosclerosis of native arteries of extremities, bilateral legs
CPT/HCPCS: G0463

== ENCOUNTER → 2022-10-06 | Outpatient (CLI) | payer MEDICARE ==
[2022-10-06 13:32] LABS: Hematocrit 24.9 % (37.0-53.0); Hemoglobin 8.2 g/dL (13.5-17.5); Mean Corpuscular HGB 32.7 pg (26.0-34.0); Mean Corpuscular HGB Conc 32.9 g/dL (31.5-36.5); Mean Corpuscular Volume 99 fL (80-100); Mean Platelet Volume 9.5 fL (9.1-12.4); Platelet Count 200 K/mm3 (150-400); RDW Standard Deviation 69.4 fL (35.1-46.3); Red Blood Cell Count 2.51 M/mm3 (4.30-5.90); White Blood Cell Count 6.43 K/mm3 (4.00-11.30)
[2022-10-06 13:44] LABS: International Normalized Ratio 0.96; Prothrombin Time Results 10.1 Sec (9.7-11.5)
[2022-10-06 13:52] LABS: BASOPHILS PERCENT MAN 0 % (0-2); EOSINOPHILS ABSOLUTE MAN 0.19 K/mm3 (0.00-0.68); EOSINOPHILS PERCENT MAN 3 % (0-6); LYMPHOCYTES % ATYPICAL MANUAL 2 % (0-0); LYMPHOCYTES ABSOLUTE MAN 1.67 K/mm3 (0.84-5.20); LYMPHOCYTES PERCENT MAN 24 % (21-46); MONOCYTES ABSOLUTE MAN 0.06 K/mm3 (0.16-1.47); MONOCYTES PERCENT MAN 1 % (4-13); SEG NEUTROPHILS PERCENT MAN 70 % (41-73); TOTAL CELLS COUNTED 100
[2022-10-06 17:36] LABS: Bun/Creatinine Ratio 10.8 (12.0-20.0); Creatinine, Blood 0.65 mg/dL (0.60-1.20); Potassium, Blood 4.1 mmol/L (3.5-5.5)
== END | disposition home or self-care (01) ==
LOC: LAB 12:30 → LAB SHORT 12:30
PROVIDERS: Radiology Diagnostic Radiology
DX: I70.221 Atherosclerosis of native arteries of extremities with rest pain, right leg (principal)
CPT/HCPCS: 80048; 85007; 85027; 85610

== ENCOUNTER 2022-10-11 08:56 | Day surgery (SDC) | payer MEDICARE ==
[~2022-10-11] VITALS: Ht 175.3 cm; Wt 90.0 kg
[2022-10-11] VITALS (8 sets, daily range): BP systolic 106–145; BP diastolic 66–91
--- NOTE | 2022-10-11 12:22 | NUR ---
PT RETURNED TO RECOVERY ROOM IN BED. LEFT FEMORAL GROIN SITE SOFT NON-TENDER WITH NO HEMATOMA, NO PULSATILE BLEEDING AND INTACT DRESSING. LEFT DP PULSE DOPPLER. PT DENIES CHEST PAIN. CALL LIGHT IN REACH.
--- NOTE | 2022-10-11 14:25 | NUR ---
DISCHARGE INSTRUCTIONS REVIEWED ALL QUESTIONS ANSWERED. PT EATING LUMCH.
--- NOTE | 2022-10-11 14:34 | NUR ---
DISCHARGE INSTRUCTIONS REVIEWED ALL QUESTONS ANSWERED. 20 G IV DISCONTINUED FROM RIGHT AC WITH INTACT CANNULA. LEFT FEMORAL GROIN SITE SITLL SOFT NON-TENDER WITH NO HEMATOMA, NO PULSATILE BLEEDING AND INTACT DRESSING. PT LEFT VIA WHEELCHAIR.
== END 2022-10-11 15:36 | disposition home or self-care (01) ==
LOC: MHTC 08:56
DX: I70.221 Atherosclerosis of native arteries of extremities with rest pain, right leg (principal); I10 Essential (primary) hypertension; E78.5 Hyperlipidemia, unspecified; F17.210 Nicotine dependence, cigarettes, uncomplicated; Z79.899 Other long term (current) drug therapy
CPT/HCPCS: 75716; 75774; 76937; 99152; 99153; C1725; C1760; C1769; C1874; C1887; C1894; C9765; J1644; J2250; J3010; J7030; J7050; Q9967

== ENCOUNTER 2022-10-18 02:29 | Day surgery (SDC) | payer MEDICARE | END 2022-10-18 23:10 | disposition home or self-care (01) | LOC: WOUND 02:29 | DX: T87.43 Infection of amputation stump, right lower extremity (principal); L97.812 Non-pressure chronic ulcer of other part of right lower leg with fat layer exposed; L89.894 Pressure ulcer of other site, stage 4; F17.200 Nicotine dependence, unspecified, uncomplicated; L03.115 Cellulitis of right lower limb; L97.212 Non-pressure chronic ulcer of right calf with fat layer exposed; I70.203 Unspecified atherosclerosis of native arteries of extremities, bilateral legs | CPT/HCPCS: A9270; G0463 ==

== ENCOUNTER 2022-11-01 02:58 | Day surgery (SDC) | payer MEDICARE | END 2022-11-01 22:55 | disposition home or self-care (01) | LOC: WOUND 02:58 | DX: T87.43 Infection of amputation stump, right lower extremity (principal); L89.323 Pressure ulcer of left buttock, stage 3; L89.313 Pressure ulcer of right buttock, stage 3; L97.812 Non-pressure chronic ulcer of other part of right lower leg with fat layer exposed; F17.200 Nicotine dependence, unspecified, uncomplicated; L03.115 Cellulitis of right lower limb; L97.212 Non-pressure chronic ulcer of right calf with fat layer exposed; I70.203 Unspecified atherosclerosis of native arteries of extremities, bilateral legs | CPT/HCPCS: G0463 ==

== ENCOUNTER 2022-11-09 03:51 | Day surgery (SDC) | payer MEDICARE ==
[2022-11-15] MEDS ORDERED: HYDCHL25 PO (20:30)
[2022-11-15] MEDS ORDERED: TRITOCIN430 GM (20:31)
[2022-11-15] MEDS ORDERED: Cyclobenzaprine5 MG (20:32)
[2022-11-15] MEDS ORDERED: DICLOFENAC SODI50 GM (20:33)
== END 2022-11-09 22:43 | disposition home or self-care (01) ==
LOC: WOUND 03:51
DX: L89.894 Pressure ulcer of other site, stage 4 (principal); L89.323 Pressure ulcer of left buttock, stage 3; L89.313 Pressure ulcer of right buttock, stage 3; T87.43 Infection of amputation stump, right lower extremity; L97.812 Non-pressure chronic ulcer of other part of right lower leg with fat layer exposed; L97.212 Non-pressure chronic ulcer of right calf with fat layer exposed; L89.90 Pressure ulcer of unspecified site, unspecified stage; F17.200 Nicotine dependence, unspecified, uncomplicated; L03.115 Cellulitis of right lower limb; I70.203 Unspecified atherosclerosis of native arteries of extremities, bilateral legs
CPT/HCPCS: 99406; A9270; G0463

== ENCOUNTER 2022-11-16 07:36 | Inpatient (IN) | payer MEDICARE ==
[~2022-11-16] VITALS: Ht 175.3 cm; Wt 77.7 kg
[~2022-11-16 07:36] MED LIST changes: +Cyclobenzaprine5 MG; +DICLOFENAC SODI50 GM; +TRITOCIN430 GM
[2022-11-16 08:52] LABS: BASOPHILS ABSOLUTE AUTO 0.06 K/mm3 (0.00-0.23); BASOPHILS PERCENT AUTO 1 % (0-2); EOSINOPHILS ABSOLUTE AUTO 0.61 K/mm3 (0.00-0.68); EOSINOPHILS PERCENT AUTO 7 % (0-6); Hematocrit 24.6 % (37.0-53.0); Hemoglobin 8.1 g/dL (13.5-17.5); IMMATURE GRAN ABSOLUTE AUTO 0.04 K/mm3 (0.00-0.10); IMMATURE GRAN PERCENT AUTO 0 % (0-1); LYMPHOCYTES ABSOLUTE AUTO 2.36 K/mm3 (0.84-5.20); LYMPHOCYTES PERCENT AUTO 26 % (21-46); MONOCYTES ABSOLUTE AUTO 0.69 K/mm3 (0.16-1.47); MONOCYTES PERCENT AUTO 8 % (4-13); Mean Corpuscular HGB Conc 32.9 g/dL (31.5-36.5); Mean Corpuscular Volume 97 fL (80-100); Mean Platelet Volume 9.5 fL (9.1-12.4); NEUTROPHILS ABSOLUTE AUTO 5.27 K/mm3 (1.96-9.15); NEUTROPHILS PERCENT AUTO 58 % (41-73); Platelet Count 286 K/mm3 (150-400); RDW Coefficient Variation 17.6 % (11.7-14.2); RDW Standard Deviation 63.1 fL (35.1-46.3); Red Blood Cell Count 2.53 M/mm3 (4.30-5.90); White Blood Cell Count 9.03 K/mm3 (4.00-11.30)
[2022-11-16 09:09] LABS: Bun/Creatinine Ratio 14.4 (12.0-20.0); C-REACTIVE PROTEIN, EXT RANGE 12.7 mg/dL (0.000-0.300); Calcium, Blood 8.7 mg/dL (8.5-10.1); Creatinine, Blood 0.56 mg/dL (0.60-1.20); Magnesium, Blood 1.9 mg/dL (1.6-2.4); Potassium, Blood 3.6 mmol/L (3.5-5.5)
[2022-11-16 09:57] LABS: Source, Urine Clean Catch
[2022-11-16 10:02] LABS: Appearance, Urine Clear (Clear); Bilirubin, Urine Neg (Neg); Blood, Urine Neg (Neg); Glucose Qualitative, Urine Neg (Neg); Ketones, Urine Neg (Neg); Leukocyte Esterase, Urine Neg (Neg); Nitrite, Urine Neg (Neg); Protein, Urine Neg (Neg); Specific Gravity, Urine 1.005 (1.003-1.022); Urobilinogen, Urine NORM (Normal)
[2022-11-16 10:11] LABS: Color, Urine Pale Yellow (P-Yellow)
[2022-11-16 14:01] VITALS: BP 141/70
[2022-11-16] MEDS ORDERED: GABA300 PO (14:16)
--- NOTE | 2022-11-16 15:04 | NUR ---
PT ARRIVED TO ROOM 224 FROM ED AT 1400 STOOD AND TRANSFERRED SELF FROM WC TO BED INDEPENDENTLY. ORIENTED TO ROOM/CALL LIGHT. TOOK PT'S CIGARETTES AND PROPERTY MANAGEMENT INTERN AND LOCKED IN PT'S DRAWER OUTSIDE OF ROOM. EDUCATED ON TOBACCO FREE CAMPUS. PT WOULD LIKE NICOTINE PATCH. PT REPORTS HAS WOUNDS IN GLUTEAL CLEFT, REFUSES TO ALLOW ASSESSMENT AT THIS TIME, SAYING JUST CHANGED BANDAGES. R BKA SITE DRAINING PURULENT DRAINAGE, HAS LARGE BLACK AREAS AND FOUL SMELLING. PT ALLOWING TO HANG OFF SIDE OF BED FOR COMFORT. CALL LIGHT IN REACH.
--- NOTE | 2022-11-16 16:36 | NUR ---
DR NOEL IN TO SEE PT. PLAN TO MAKE NPO AFTER MN FOR SURGERY TOMORROW.
--- NOTE | 2022-11-16 17:20 | NUR ---
SUMMARY NO ACUTE CHANGES SINCE ARRIVING TO FLOOR. DR NOEL IN TO SEE PT. ORDERS TO MAKE NPO AFTER MN FOR PLANS OF SURGERY TOMORROW. MEDICATED PER ORDERS FOR PAIN, RESTING WITH EYES CLOSED. SECURED PT'S EDGE GRINDER AND CIGARETTES IN LOCKED DRAWER; PT EDUCATED ON [employer] TO[employer]AC[employer] POLICY. OBTAINED ORDERS FOR NICOTINE PATCH PER PT'S REQUEST. PLACED ON LUE PER ORDERS. CALL LIGHT IN REACH.
[2022-11-16 19:39] VITALS: BP 111/75
[2022-11-17 02:23] VITALS: BP 112/62
[2022-11-17 04:25] LABS: BASOPHILS ABSOLUTE AUTO 0.03 K/mm3 (0.00-0.23); BASOPHILS PERCENT AUTO 0 % (0-2); EOSINOPHILS ABSOLUTE AUTO 0.29 K/mm3 (0.00-0.68); EOSINOPHILS PERCENT AUTO 3 % (0-6); Hematocrit 23.8 % (37.0-53.0); Hemoglobin 7.9 g/dL (13.5-17.5); IMMATURE GRAN ABSOLUTE AUTO 0.05 K/mm3 (0.00-0.10); IMMATURE GRAN PERCENT AUTO 1 % (0-1); LYMPHOCYTES ABSOLUTE AUTO 1.66 K/mm3 (0.84-5.20); LYMPHOCYTES PERCENT AUTO 16 % (21-46); MONOCYTES ABSOLUTE AUTO 0.53 K/mm3 (0.16-1.47); MONOCYTES PERCENT AUTO 5 % (4-13); Mean Corpuscular HGB 32.1 pg (26.0-34.0); Mean Corpuscular HGB Conc 33.2 g/dL (31.5-36.5); Mean Corpuscular Volume 97 fL (80-100); Mean Platelet Volume 9.5 fL (9.1-12.4); NEUTROPHILS ABSOLUTE AUTO 7.62 K/mm3 (1.96-9.15); NEUTROPHILS PERCENT AUTO 75 % (41-73); Platelet Count 251 K/mm3 (150-400); RDW Coefficient Variation 17.6 % (11.7-14.2); RDW Standard Deviation 62.8 fL (35.1-46.3); Red Blood Cell Count 2.46 M/mm3 (4.30-5.90); White Blood Cell Count 10.18 K/mm3 (4.00-11.30)
--- NOTE | 2022-11-17 04:33 | NUR ---
SHIFT SUMMARY PATIENT AOX4, ADMIT FOR NECROSIS OF BKA STUMP. BLACK SCABBING AND OPEN WOUND TO R STUMP. DRESSING PLACED THIS SHIFT AND REDRESSED THIS AM DUE TO SATURATION DRNG. DRNG IS SS AND HAS FOUL ODOR. PATIENT IS MEDICATED FOR PAIN T/O NIGHT. NPO SINCE 0000. PATIENT REPOSITIONS SELF IN BED AND IS ABLE TO TRANSFER TO W/C WITH ASSISTANCE. IV ABX INFUSING. FLUIDS AT TKO. CALL LIGHT IS IN REACH, VSS.
[2022-11-17 04:42] LABS: Albumin, Blood 2.1 g/dL (3.4-5.0); Albumin/Globulin Ratio 0.5 (0.8-1.8); Bilirubin, Total 0.3 mg/dL (0.1-1.0); Bun/Creatinine Ratio 22.2 (12.0-20.0); Calcium, Blood 8.4 mg/dL (8.5-10.1); Creatinine, Blood 0.72 mg/dL (0.60-1.20); Total Protein, Blood 6.1 g/dL (6.4-8.2)
--- NOTE | 2022-11-17 07:27 | NUR ---
PATIENT REPORTED TO DAY SHIFT NURSE A BUTTOCK SORE AND WHEN ASKED TO ASSESS HE REFUSED THIS RN TO LOOK AND DOCUMENT SORE.
[2022-11-17 07:35] VITALS: BP 104/63
--- NOTE | 2022-11-17 11:32 | NUR ---
jennifer/corner trimmer operator in to assess/treat buttocks wound
[2022-11-17 16:00] VITALS: BP 104/60
[2022-11-17 16:24] VITALS: BP 101/56
--- NOTE | 2022-11-17 16:42 | NUR ---
PT TO OR AT APPROXIMATELY 1630.
--- NOTE | 2022-11-17 16:47 | NUR ---
SENT 1600 CEFEPIME TO PRE OP
--- NOTE | 2022-11-17 17:03 | NUR ---
PT HAS 18 G IN L AC THAT FLOWS WELL TO GRAVITY AND SHOWS NO SIGNS OF INFILTRATION. NO SWELLING, DRAINAGE, REDNESS NOTED.
--- NOTE | 2022-11-17 18:17 | NUR ---
INFORMED BY OR PROCESS TECHNICIAN THAT PT WILL NOT HAVE SURGERY TONIGHT DUE TO PREVIOUS CASE RUNNING LATE. PT MADE AWARE AND UNDERSTANDING OF PLAN. PT RETURNED TO ROOM 224.
--- NOTE | 2022-11-17 18:29 | NUR ---
PT'S SURGERY CANCELLED FOR TONIGHT PT RETURNED TO ROOM IN BED. PROVIDED DINNER. PT C/O 12/19 PAIN TO RLE. OBTAINED OT ORDER TO GIVE PAIN MEDS 1 HR EARLY. ADMINISTERED TO PT. PT NOW SITTING ON EDGE OF BED, EATING DINNER. CALL LIGHT IN REACH.
[2022-11-17 20:41] VITALS: BP 101/66
[2022-11-18] VITALS (10 sets, daily range): BP systolic 98–129; BP diastolic 59–75
[2022-11-18 01:22] LABS: Vancomycin, Trough 15.4 ug/mL (5.0-10.0)
[2022-11-18 05:38] LABS: BASOPHILS ABSOLUTE AUTO 0.03 K/mm3 (0.00-0.23); BASOPHILS PERCENT AUTO 0 % (0-2); EOSINOPHILS ABSOLUTE AUTO 0.23 K/mm3 (0.00-0.68); EOSINOPHILS PERCENT AUTO 3 % (0-6); Hematocrit 20.7 % (37.0-53.0); Hemoglobin 6.8 g/dL (13.5-17.5); Mean Corpuscular HGB 31.9 pg (26.0-34.0); Mean Corpuscular HGB Conc 32.9 g/dL (31.5-36.5); Mean Corpuscular Volume 97 fL (80-100); Mean Platelet Volume 9.4 fL (9.1-12.4); Platelet Count 192 K/mm3 (150-400); RDW Coefficient Variation 17.8 % (11.7-14.2); Red Blood Cell Count 2.13 M/mm3 (4.30-5.90); White Blood Cell Count 7.43 K/mm3 (4.00-11.30)
[2022-11-18 05:40] LABS: IMMATURE GRAN ABSOLUTE AUTO 0.02 K/mm3 (0.00-0.10); IMMATURE GRAN PERCENT AUTO 0 % (0-1); LYMPHOCYTES ABSOLUTE AUTO 1.82 K/mm3 (0.84-5.20); LYMPHOCYTES PERCENT AUTO 25 % (21-46); MONOCYTES ABSOLUTE AUTO 0.57 K/mm3 (0.16-1.47); MONOCYTES PERCENT AUTO 8 % (4-13); NEUTROPHILS ABSOLUTE AUTO 4.76 K/mm3 (1.96-9.15); NEUTROPHILS PERCENT AUTO 64 % (41-73)
--- NOTE | 2022-11-18 06:06 | NUR ---
SHIFT SUMMARY PT IS A&O X4, ON RA, VSS, TOLERATING PO INTAKE, NPO SINCE MIDNIGHT FOR POSSIBLE SURGERY TO R.LEG, DRSG WAS CHANGED, NEW STUMP SOCK APPLIED, PT ENC TO ELEVATE EXTREMITY BUT HE REFUSES & STATES IT'S MORE COMFORTABLE ON THE EDGE OF THE BED. PAIN MANAGED PER EMAR PRN, MELVIN, ODOROUS URINE NOTED, PT IS RESTING QUIETLY THIS AM, CALL LIGHT IN REACH, WCTM & REPORT
[2022-11-18 06:28] LABS: Bun/Creatinine Ratio 24.5 (12.0-20.0); Calcium, Blood 8.3 mg/dL (8.5-10.1); Creatinine, Blood 0.74 mg/dL (0.60-1.20); Potassium, Blood 4.7 mmol/L (3.5-5.5)
[2022-11-18 08:20] LABS: IMMATURE RETIC FRACTION 25.8 % (2.3-16.0); RETIC HGB EQUIVALENT 35.5 pg (28.20-36.60); RETICULOCYTE ABSOLUTE 0.0464 M/mm3 (0.0200-0.1100); RETICULOCYTE COUNT PERCENT 2.19 % (0.50-2.50)
[2022-11-18 08:59] LABS: Percent Saturation 17.4 % (20.0-50.0)
[2022-11-18 17:35] LABS: Hematocrit 26.7 % (37.0-53.0)
--- NOTE | 2022-11-18 18:48 | NUR ---
SHIFT SUMMARY S/P R BKA INFECTION, A/OX4, VSS, TOLERATING PO AFTER OR PUSHED OUT TO TOMORROW, 2 UNITS PRBC GIVEN ORDERED AND HEMOGLOBIN IS NOW UP TO 9.0, PLAN FOR OR IN THE MORNING. NO ACUTE EVENTS THIS SHIFT, CALL LIGHT IN REACH.
--- NOTE | 2022-11-18 19:30 | NUR ---
DR. GRANDE IN TO SEE PT DRESSINGS REMOVED, RECOMMENDED BY DR. GRANDE FOR SURGERY IN FOR AKA R/T AMT OF NECROTIC TISSUE. ORDERS FOR PT TO BE NPO AT MD. NEW DRESSINGS PLACED AT THIS TIME.
[2022-11-19] VITALS (8 sets, daily range): BP systolic 105–131; BP diastolic 64–83
[2022-11-19 02:20] LABS: BASOPHILS ABSOLUTE AUTO 0.02 K/mm3 (0.00-0.23); BASOPHILS PERCENT AUTO 0 % (0-2); EOSINOPHILS ABSOLUTE AUTO 0.21 K/mm3 (0.00-0.68); EOSINOPHILS PERCENT AUTO 3 % (0-6); Hematocrit 23.8 % (37.0-53.0); IMMATURE GRAN ABSOLUTE AUTO 0.02 K/mm3 (0.00-0.10); IMMATURE GRAN PERCENT AUTO 0 % (0-1); LYMPHOCYTES ABSOLUTE AUTO 1.59 K/mm3 (0.84-5.20); LYMPHOCYTES PERCENT AUTO 21 % (21-46); MONOCYTES ABSOLUTE AUTO 0.73 K/mm3 (0.16-1.47); MONOCYTES PERCENT AUTO 10 % (4-13); Mean Corpuscular HGB 31.9 pg (26.0-34.0); Mean Corpuscular HGB Conc 33.6 g/dL (31.5-36.5); Mean Corpuscular Volume 95 fL (80-100); Mean Platelet Volume 9.7 fL (9.1-12.4); NEUTROPHILS ABSOLUTE AUTO 4.87 K/mm3 (1.96-9.15); NEUTROPHILS PERCENT AUTO 65 % (41-73); Platelet Count 196 K/mm3 (150-400); RDW Coefficient Variation 18.7 % (11.7-14.2); RDW Standard Deviation 64.4 fL (35.1-46.3); Red Blood Cell Count 2.51 M/mm3 (4.30-5.90); White Blood Cell Count 7.44 K/mm3 (4.00-11.30)
[2022-11-19 02:39] LABS: Albumin, Blood 1.9 g/dL (3.4-5.0); Albumin/Globulin Ratio 0.5 (0.8-1.8); Bilirubin, Total 0.4 mg/dL (0.1-1.0); Bun/Creatinine Ratio 29.1 (12.0-20.0); Calcium, Blood 8.1 mg/dL (8.5-10.1); Creatinine, Blood 0.83 mg/dL (0.60-1.20); Globulin, Blood 3.9 g/dL (2.2-4.0); Potassium, Blood 4.3 mmol/L (3.5-5.5); Total Protein, Blood 5.8 g/dL (6.4-8.2)
--- NOTE | 2022-11-19 05:57 | NUR ---
SHIFT SUMMARY ADMIT FOR NECROTIC RLE STUMP. SCHEDULED FOR AKA SURGERY THIS A.M. PER DR. GRANDE CONSULT, PT AGREEABLE. A&OX4, INDEP TO ELECTRIC W/C W/ STAND/PIVOT TRANSFERS. PT MEDICATED Q2-3 HOURS ROTATING PERCOCET AND FABIANA FOR 10/10 PAIN T/O NIGHT W/ SOME RELIEF ABOUT 3AM TO SLEEP. SAM PATCH IN PLACE TO LEFT SHOULDER, CIGS/CONSTRUCTION OPERATIONS MANAGER IN PT LOCKED DRAWER. PT AWARE OF IGNITION PROTOCOLS. NO ACUTE CHANGES THIS SHIFT.
[2022-11-19 07:15] LABS: Hematocrit 25.2 % (37.0-53.0); Hemoglobin 8.3 g/dL (13.5-17.5)
[2022-11-20] VITALS (18 sets, daily range): BP systolic 108–164; BP diastolic 68–97
--- NOTE | 2022-11-20 01:06 | NUR ---
BLOOD COMPLETE PT RECEIVED 2 UNITS PRBC, NO INTERACTIONS NOTED.
[2022-11-20 04:46] LABS: BASOPHILS ABSOLUTE AUTO 0.04 K/mm3 (0.00-0.23); BASOPHILS PERCENT AUTO 1 % (0-2); EOSINOPHILS ABSOLUTE AUTO 0.26 K/mm3 (0.00-0.68); EOSINOPHILS PERCENT AUTO 4 % (0-6); Hematocrit 29.9 % (37.0-53.0); Hemoglobin 9.9 g/dL (13.5-17.5); IMMATURE GRAN ABSOLUTE AUTO 0.03 K/mm3 (0.00-0.10); IMMATURE GRAN PERCENT AUTO 0 % (0-1); LYMPHOCYTES ABSOLUTE AUTO 1.62 K/mm3 (0.84-5.20); LYMPHOCYTES PERCENT AUTO 24 % (21-46); MONOCYTES ABSOLUTE AUTO 0.68 K/mm3 (0.16-1.47); MONOCYTES PERCENT AUTO 10 % (4-13); Mean Corpuscular HGB 30.4 pg (26.0-34.0); Mean Corpuscular HGB Conc 33.1 g/dL (31.5-36.5); Mean Corpuscular Volume 92 fL (80-100); Mean Platelet Volume 9.3 fL (9.1-12.4); NEUTROPHILS ABSOLUTE AUTO 4.27 K/mm3 (1.96-9.15); NEUTROPHILS PERCENT AUTO 62 % (41-73); Platelet Count 189 K/mm3 (150-400); RDW Coefficient Variation 20.3 % (11.7-14.2); RDW Standard Deviation 67.4 fL (35.1-46.3); Red Blood Cell Count 3.26 M/mm3 (4.30-5.90)
[2022-11-20 05:09] LABS: Bun/Creatinine Ratio 37.7 (12.0-20.0); Calcium, Blood 8.6 mg/dL (8.5-10.1); Creatinine, Blood 0.8 mg/dL (0.60-1.20); Potassium, Blood 4.2 mmol/L (3.5-5.5)
--- NOTE | 2022-11-20 06:20 | NUR ---
SHIFT SUMMARY NECROSIS OF R STUB, PLANS FOR AKA TODAY. PT RECEIVED 2 UNITS PRBC, TOLERATED WELL. HgB INCREASED FROM 8.3 TO 9.9 THIS A.M. PT A&OX4, INDEPENDANT TO ELECTRIC W/C IN ROOM TO BATHROOM. PT MEDICATED 2X THIS SHIFT FOR 10/10 PAIN TO RLE. NO ACUTE CHANGES THIS SHIFT.
--- NOTE | 2022-11-20 13:32 | NUR ---
PATIENT LEFT FOR THE OR.
--- NOTE | 2022-11-20 13:39 | NUR ---
PT POWER GLIDE FUNCTIONS WELL. History, Chart, Medications and Allergies reviewed before start of procedure. Lungs clear T/O to Auscultation. Patient confirms NPO status and agrees with scheduled surgery. Pre-Op teaching done. Pt verbalizes understanding.
--- NOTE | 2022-11-20 17:47 | NUR ---
PATIENT CAME FROM PACU TODAY AT 1740. POD 0 RIGHT AKA PATIENT IS A&OX4. VS ARE WNL AND ON RA. PATIENT REPORTS 8/10 PAIN WHICH IV DILAUDID WAS GIVEN WHICH HAS MANAGED HIS PAIN AT THIS TIME. PATIENT HAS A STUMP SOCK ON HIS RIGHT STUMP THAT IS C/D/I. HE IS VOIDING IN THE URNAL INDEP. AT BEDSIDE. HE IS LAYING IN BED WITH CALL LIGHT IN REACH.
--- NOTE | 2022-11-20 17:51 | NUR ---
PATIENT WAS GIVEN 1 UNIT OF BLOOD IN THE OR DURING THE PROCEDURE. THERE IS PAPER CHARTING IN HIS PHYSICAL CHART THAT HAS THE VS WHILE BLOOD WAS BEING GIVEN WELL WHICH OR/PACU NURSES VARIFIED AND GAVE THE UNIT OF BLOOD. THIS NURSE IS UNABLE TO DOCUMENT ON IT SINCE THIS NURSE DID NOT GIVE THE BLOOD.
[2022-11-20 20:38] LABS: BASOPHILS ABSOLUTE AUTO 0.02 K/mm3 (0.00-0.23); BASOPHILS PERCENT AUTO 0 % (0-2); EOSINOPHILS ABSOLUTE AUTO 0.19 K/mm3 (0.00-0.68); EOSINOPHILS PERCENT AUTO 3 % (0-6); Hematocrit 31.1 % (37.0-53.0); Hemoglobin 10.4 g/dL (13.5-17.5); IMMATURE GRAN ABSOLUTE AUTO 0.02 K/mm3 (0.00-0.10); IMMATURE GRAN PERCENT AUTO 0 % (0-1); LYMPHOCYTES PERCENT AUTO 17 % (21-46); MONOCYTES ABSOLUTE AUTO 0.53 K/mm3 (0.16-1.47); MONOCYTES PERCENT AUTO 8 % (4-13); Mean Corpuscular HGB 30.8 pg (26.0-34.0); Mean Corpuscular HGB Conc 33.4 g/dL (31.5-36.5); Mean Corpuscular Volume 92 fL (80-100); Mean Platelet Volume 9.5 fL (9.1-12.4); NEUTROPHILS ABSOLUTE AUTO 4.73 K/mm3 (1.96-9.15); NEUTROPHILS PERCENT AUTO 72 % (41-73); Platelet Count 194 K/mm3 (150-400); RDW Coefficient Variation 20.6 % (11.7-14.2); RDW Standard Deviation 68.6 fL (35.1-46.3); Red Blood Cell Count 3.38 M/mm3 (4.30-5.90); White Blood Cell Count 6.59 K/mm3 (4.00-11.30)
[2022-11-21 00:13] VITALS: BP 137/76
[2022-11-21 04:34] VITALS: BP 129/66
--- NOTE | 2022-11-21 05:36 | NUR ---
SHIFT SUMMARY POD #1 RenaldoKEVIN PT IS A&O X4, VSS, ON RA, PAIN MANAGED PER EMAR PRN, REFUSED COLD THERAPY, DRSG CHANGED TWICE THROUGH THE SHIFT(SEE PREVIOUS NOTE), CURRENTLY C/D/I, DRAIN IN PLACE, SANGUINOUS DRAINAGE NOTED, PT EDU ON HEALING/INFECTION PREVENTION, ENC TO LEAVE DRSG ALONE & NOT TO TOUCH IT WITH HIS BARE HANDS WHEN DRSG DOES LOOSEN, HE IS TO CALL THE NURSE RIGHT AWAY. PT WAS ALSO ENC TO STAY IN BED/ELEVATE LEG ON PILLOWS, HE WAS ATTEMPTING TO GET IN/OUT OF ELECTRIC CHAIR ON HIS OWN, PT IS RESTING QUIETLY AT THIS TIME, CALL LIGHT IN REACH, WCRAÚL & REPORT TO DAY RN.
[2022-11-21 06:21] LABS: BASOPHILS ABSOLUTE AUTO 0.03 K/mm3 (0.00-0.23); BASOPHILS PERCENT AUTO 0 % (0-2); EOSINOPHILS ABSOLUTE AUTO 0.25 K/mm3 (0.00-0.68); EOSINOPHILS PERCENT AUTO 3 % (0-6); Hematocrit 28.1 % (37.0-53.0); Hemoglobin 9.6 g/dL (13.5-17.5); IMMATURE GRAN ABSOLUTE AUTO 0.06 K/mm3 (0.00-0.10); IMMATURE GRAN PERCENT AUTO 1 % (0-1); LYMPHOCYTES ABSOLUTE AUTO 1.43 K/mm3 (0.84-5.20); LYMPHOCYTES PERCENT AUTO 14 % (21-46); MONOCYTES ABSOLUTE AUTO 0.86 K/mm3 (0.16-1.47); MONOCYTES PERCENT AUTO 9 % (4-13); Mean Corpuscular HGB 31.4 pg (26.0-34.0); Mean Corpuscular HGB Conc 34.2 g/dL (31.5-36.5); Mean Corpuscular Volume 92 fL (80-100); Mean Platelet Volume 9.4 fL (9.1-12.4); NEUTROPHILS ABSOLUTE AUTO 7.28 K/mm3 (1.96-9.15); NEUTROPHILS PERCENT AUTO 74 % (41-73); Platelet Count 193 K/mm3 (150-400); RDW Coefficient Variation 19.9 % (11.7-14.2); RDW Standard Deviation 66.5 fL (35.1-46.3); Red Blood Cell Count 3.06 M/mm3 (4.30-5.90); White Blood Cell Count 9.91 K/mm3 (4.00-11.30)
[2022-11-21 06:49] LABS: Bun/Creatinine Ratio 33.3 (12.0-20.0); Calcium, Blood 8.3 mg/dL (8.5-10.1); Creatinine, Blood 0.69 mg/dL (0.60-1.20); Potassium, Blood 4.3 mmol/L (3.5-5.5)
[2022-11-21 07:14] VITALS: BP 115/84
[2022-11-21 14:43] VITALS: BP 124/58
--- NOTE | 2022-11-21 14:55 | NUR ---
PT OUT OF ROOM IN ELECTRIC WC.
--- NOTE | 2022-11-21 15:04 | NUR ---
PT BACK TO ROOM
--- NOTE | 2022-11-21 17:04 | NUR ---
summary NO ACUTE CHANGES T/O SHIFT. PT WORKED WITH OT. GETS UP INDEPENDENTLY TO MOTORIZED WC. WENT OUTSIDE INDEPENDENTLY FOR SHORT AMOUNT OF TIME. PT PAINFUL TO RLE, MEDICATED PER ORDERS FOR PAIN. PT RESTING IN BED AT THIS TIME, CALL LIGHT IN REACH.
[2022-11-21 19:26] VITALS: BP 124/71
[2022-11-22 00:03] LABS: Vancomycin, Trough 14.5 ug/mL (5.0-10.0)
--- NOTE | 2022-11-22 04:29 | NUR ---
SHIFT SUMMARY NOC. PT A&O X4. PT HAD RIGHT STUMP REDRESSED AT THE BEGINNING OF SHIFT. PT INDEPENDENT WITH URINAL. MEDICATED FOR PAIN PER EMAR WITH LITTLE RELIEF. PT IS PRIVATE AND DECLINED TO ALLOW THIS RN TO ASSESS CHRONIC SORES ON BOTTOM.
[2022-11-22 04:48] LABS: BASOPHILS ABSOLUTE AUTO 0.03 K/mm3 (0.00-0.23); BASOPHILS PERCENT AUTO 0 % (0-2); EOSINOPHILS ABSOLUTE AUTO 0.17 K/mm3 (0.00-0.68); EOSINOPHILS PERCENT AUTO 2 % (0-6); Hematocrit 24.3 % (37.0-53.0); IMMATURE GRAN ABSOLUTE AUTO 0.04 K/mm3 (0.00-0.10); IMMATURE GRAN PERCENT AUTO 1 % (0-1); LYMPHOCYTES ABSOLUTE AUTO 1.28 K/mm3 (0.84-5.20); LYMPHOCYTES PERCENT AUTO 16 % (21-46); MONOCYTES ABSOLUTE AUTO 1.05 K/mm3 (0.16-1.47); MONOCYTES PERCENT AUTO 13 % (4-13); Mean Corpuscular HGB 30.8 pg (26.0-34.0); Mean Corpuscular HGB Conc 32.9 g/dL (31.5-36.5); Mean Corpuscular Volume 94 fL (80-100); Mean Platelet Volume 9.7 fL (9.1-12.4); NEUTROPHILS PERCENT AUTO 69 % (41-73); Platelet Count 152 K/mm3 (150-400); RDW Coefficient Variation 19.1 % (11.7-14.2); RDW Standard Deviation 65.3 fL (35.1-46.3); White Blood Cell Count 8.27 K/mm3 (4.00-11.30)
[2022-11-22 05:16] LABS: Bun/Creatinine Ratio 23.8 (12.0-20.0); Calcium, Blood 8.2 mg/dL (8.5-10.1); Creatinine, Blood 0.67 mg/dL (0.60-1.20); Potassium, Blood 3.8 mmol/L (3.5-5.5)
[2022-11-22 06:03] VITALS: BP 110/56
[2022-11-22 07:44] VITALS: BP 128/63
--- NOTE | 2022-11-22 14:38 | NUR ---
DRESSINGS AT BUTTOCKS REMOVED AND WOUNDS ASSESSED. PT HAS QUARTER SIZE ULCERS AT LOWER R AND L BUTT CHEEKS THAT APPEAR TO BE HEALING. JUANITO, MANAGED CARE MANAGER ASKED THIS RN TO CHANGE DRESSINGS TODAY. THIS RN CLEANSED AREA WITH SALINE AND GAUZE AND THEN APPLIED MEDIHONEY AND COVERED WITH SMALL MEPILEX PER JUANITO'S INSTRUCTION. PT TOLERATED WELL, DRESSINGS NOW CDI.
[2022-11-22 15:40] VITALS: BP 101/57
--- NOTE | 2022-11-22 16:38 | NUR ---
SUMMARY: PT IS POD2 AKA, A/O, VSS. R STUMP SURGICAL SITE WNL, DR. CABRERA CHANGED DRESSING AND REMOVED PINROSE DRAIN TODAY. PT STAND/PIVOTS TO ELECTRIC WHEELCHAIR INDEPENDENTLY. MOVES AROUND ROOM IN WHEELCHAIR WELL. ANTIBIOTICS INFUSED THROUGH POWERGLIDE PER ORDER. PAIN APPEARS TO BE MANAGED WELL, MEDICATED PER EMAR. PLAN IS FOR HOME WITH TOMORROW. NO ACUTE SAFETY CONCERNS AT THIS TIME.
[2022-11-22 20:04] VITALS: BP 115/64
--- NOTE | 2022-11-23 00:11 | NUR ---
RIGHT AKA DRESSING. LATE ENTRY FOR 11/22/2022 AT 2210. PT REMOVED HIS STUMP DRESSING. PT REPORTED IT WAS FALLING OFF. INSTRUCTED PATIENT NOT TO TOUCH STUMP DUE TO RISK OF INFECTION. PT VERBALIZED UNDERSTANDING. NO DRAINAGE PRESENT ON STUMP. ABDOMINAL PADS PLACED, WRAPPED WITH KERLEX, AND THEN WRAPPED WITH TAMELA BANDAGE.
[2022-11-23 02:46] VITALS: BP 103/57
--- NOTE | 2022-11-23 04:27 | NUR ---
DRESSING CHANGED STUMP DRESSING CAME LOOSE AND FELL ON FLOOR THIS RN GOT NEW, CLEAN DRESSINGS AND CLEANSED WOUND WITH GAUZE AND SALINE. PATIENT INSTRUCTED NOT TOUCH WOUND WITH HANDS AND TO NOT SCRATCH LOWER LEG. DRESSING IS C/D/I. URSZULA S/S NEENA NOTED ON PREVIOUS DRESSING.
[2022-11-23 06:06] LABS: BASOPHILS ABSOLUTE AUTO 0.02 K/mm3 (0.00-0.23); BASOPHILS PERCENT AUTO 0 % (0-2); EOSINOPHILS ABSOLUTE AUTO 0.25 K/mm3 (0.00-0.68); EOSINOPHILS PERCENT AUTO 4 % (0-6); Hematocrit 25.3 % (37.0-53.0); Hemoglobin 8.3 g/dL (13.5-17.5); IMMATURE GRAN ABSOLUTE AUTO 0.02 K/mm3 (0.00-0.10); IMMATURE GRAN PERCENT AUTO 0 % (0-1); LYMPHOCYTES ABSOLUTE AUTO 1.38 K/mm3 (0.84-5.20); LYMPHOCYTES PERCENT AUTO 20 % (21-46); MONOCYTES ABSOLUTE AUTO 0.73 K/mm3 (0.16-1.47); MONOCYTES PERCENT AUTO 10 % (4-13); Mean Corpuscular HGB 31.1 pg (26.0-34.0); Mean Corpuscular HGB Conc 32.8 g/dL (31.5-36.5); Mean Corpuscular Volume 95 fL (80-100); Mean Platelet Volume 10.4 fL (9.1-12.4); NEUTROPHILS ABSOLUTE AUTO 4.61 K/mm3 (1.96-9.15); NEUTROPHILS PERCENT AUTO 66 % (41-73); Platelet Count 164 K/mm3 (150-400); RDW Coefficient Variation 18.7 % (11.7-14.2); RDW Standard Deviation 64.9 fL (35.1-46.3); Red Blood Cell Count 2.67 M/mm3 (4.30-5.90); White Blood Cell Count 7.01 K/mm3 (4.00-11.30)
--- NOTE | 2022-11-23 06:30 | NUR ---
SHIFT SUMMARY NOC. PT A&O X4. PT MEDICATED FOR PAIN AND MUSCLE SPASMS WITH SOME RELIEF PER EMAR ORDERS. PT'S RIGHT AKA HAD TO BE REDRESSED TWICE THIS SHIFT. DRESSING IS CLEAN, DRY, AND INTACT. PT IS INDEPENDENT IN THE ROOM AND HAS BEEN VOIDING URINE.
[2022-11-23 06:31] LABS: Bun/Creatinine Ratio 28.6 (12.0-20.0); Calcium, Blood 8.5 mg/dL (8.5-10.1); Creatinine, Blood 0.77 mg/dL (0.60-1.20); Potassium, Blood 4.1 mmol/L (3.5-5.5)
[2022-11-23 07:30] VITALS: BP 116/64
--- NOTE | 2022-11-23 10:55 | NUR ---
DISCHARGE NOTE MR MARIE LEFT THE SURGICAL UNIT/DISCHARGED VIA HIS PERSONAL ELECTRIC WHEELCHAIR AT 1045AM. POWERGLIDE REOVED INTACT. MD GAVE HIM WRITTEN PRESCRIPTION FOR PAIN MEDICATIONS. PT VERBALISED UNDERSTANDING OF WRITTEN AND VERBAL DISCHARGE INSTRUCTIONS. PT WAS CALM AND COOPERATIVE AND VOICED THANKS FOR CARE AT TIME OF DISCHARGE. HE SAID PAIN WAS CONTROLLED BY MEDICATIONS ADMINISTERED.
== END 2022-11-23 10:45 | disposition home or self-care (01) | DRG 475 ==
LOC: ER 07:36 → SURS 09:45
PROVIDERS: Family Medicine; Hospitalist; Orthopaedic Surgery; Student in an Organized Health Care Education/Training Program; ADMIT Internal Medicine
PROC: 30233N1 Transfusion of Nonautologous Red Blood Cells into Peripheral Vein, Percutaneous Approach (ICD-10-PCS; principal; 2022-11-19)
PROC: 0Y6F0ZZ Detachment at Right Knee Region, Open Approach (ICD-10-PCS; 2022-11-20)
DX: T87.43 Infection of amputation stump, right lower extremity (principal); E87.1 Hypo-osmolality and hyponatremia; M86.171 Other acute osteomyelitis, right ankle and foot; I70.228 Atherosclerosis of native arteries of extremities with rest pain, other extremity; I10 Essential (primary) hypertension; E78.5 Hyperlipidemia, unspecified; I25.10 Atherosclerotic heart disease of native coronary artery without angina pectoris; L29.9 Pruritus, unspecified; D63.8 Anemia in other chronic diseases classified elsewhere; F41.9 Anxiety disorder, unspecified; G89.29 Other chronic pain; R30.0 Dysuria; M54.9 Dorsalgia, unspecified; N18.30 Chronic kidney disease, stage 3 unspecified; Z95.5 Presence of coronary angioplasty implant and graft; F17.210 Nicotine dependence, cigarettes, uncomplicated; Z89.511 Acquired absence of right leg below knee; Z79.82 Long term (current) use of aspirin; Z98.890 Other specified postprocedural states; Z79.891 Long term (current) use of opiate analgesic; Z79.899 Other long term (current) drug therapy; Z71.6 Tobacco abuse counseling
CPT/HCPCS: 36415; 36430; 73701; 80048; 80053; 80202; 81003; 82607; 82728; 82746; 83540; 83550; 83735; 83880; 85014; 85018; 85025; 85045; 85651; 86140; 86850; 86900; 86901; 86923; 87040; 87070; 87075; 87076; 87077; 87147; 87185; 87186; 87205; 88307; 93005; 93010; 94760; 96365-59; 96366; 96375-59; 97110; 97162; 97165; 97530; 97535; 99283; 99285-25; A9270; J0692; J0713; J1170; J1200; J1885; J2704; J3010; J3370; J7050; J7120; P9016; Q9967

== ENCOUNTER 2023-01-23 08:39 | Day surgery (SDC) | payer MEDICARE, OTHER ==
[2023-01-23] VITALS (8 sets, daily range): BP systolic 111–140; BP diastolic 60–94
[~2023-01-23] VITALS: Ht 172.7 cm; Wt 68.2 kg
[~2023-01-23 08:39] MED LIST changes: -Cyclobenzaprine5 MG; -DICLOFENAC SODI50 GM; +DICLOFENAC SODI50 GM TD; +LIDO5TO TOP; +Triamcinolone A15 G4 TOP
--- NOTE | 2023-01-23 12:23 | NUR ---
PATIENT RETURNED FROM THE CATHLAB VIA BED, HOB UP 10 DEGREES. RIGHT GROIN WITH ANGIOSEAL, DRESSING CDI. DOPPLER PULSE TO THE LEFT PT, DP 1+ PULSE. NO PAIN. CALL LIGHT IN REACH.
--- NOTE | 2023-01-23 13:29 | NUR ---
1330 HOB UP 30 DEGREES, RIGHT GROIN UNCHANGED.
--- NOTE | 2023-01-23 13:58 | NUR ---
PATIENT UP, SITTING UP ON THE SIDE OF THE BED. PIV REMOVED. CATH TIP INTACT. PRESSURE DRESSING APPLIED. RIGHT GROIN UNCHANGED. CDI NO BLEEDING, NO HEMATOMA, NO PAIN NOTED. PATIENT DRESSED SELF. GATHERED ALL BELONINGS. REVIEWED DISCHARGED ALL INSTRUCTIONS REVIEWED AND FOLLOW UP APPOINTMENT MADE. PATIENT HAS NO FURTHER QUESTIONS. COPIES GIVEN TO THE PATIENT. PATIENT TO MOTORIZED WHEELCHAIR AND DISHCARGED HOME VIA BUS, LIVES WITH SON AT HOME.
== END 2023-01-23 14:30 | disposition home or self-care (01) ==
LOC: MHTC 08:39
DX: I70.223 Atherosclerosis of native arteries of extremities with rest pain, bilateral legs (principal)
CPT/HCPCS: 37224; 37229; 75625; 75716; 75774; 76937; 99152; 99153; C1714; C1725; C1760; C1769; C1887; C1894; C9764; J1644; J2250; J3010; J7030; J7050; Q9967

== ENCOUNTER 2024-09-04 13:37 | Emergency (ER) | payer MEDICARE ==
[~2024-09-04] VITALS: Ht 177.8 cm; Wt 93.0 kg
[2024-09-04 14:42] LABS: BASOPHILS ABSOLUTE AUTO 0.05 K/mm3 (0.00-0.23); BASOPHILS PERCENT AUTO 1 % (0-2); EOSINOPHILS ABSOLUTE AUTO 0.12 K/mm3 (0.00-0.68); EOSINOPHILS PERCENT AUTO 1 % (0-6); Hematocrit 40.8 % (37.0-53.0); Hemoglobin 14.1 g/dL (13.5-17.5); IMMATURE GRAN ABSOLUTE AUTO 0.01 K/mm3 (0.00-0.10); IMMATURE GRAN PERCENT AUTO 0 % (0-1); LYMPHOCYTES ABSOLUTE AUTO 2.57 K/mm3 (0.84-5.20); LYMPHOCYTES PERCENT AUTO 31 % (21-46); MONOCYTES ABSOLUTE AUTO 0.95 K/mm3 (0.16-1.47); MONOCYTES PERCENT AUTO 11 % (4-13); Mean Corpuscular HGB 36.3 pg (26.0-34.0); Mean Corpuscular HGB Conc 34.6 g/dL (31.5-36.5); Mean Corpuscular Volume 105 fL (80-100); Mean Platelet Volume 9.7 fL (9.1-12.4); NEUTROPHILS ABSOLUTE AUTO 4.67 K/mm3 (1.96-9.15); NEUTROPHILS PERCENT AUTO 56 % (41-73); Platelet Count 246 K/mm3 (150-400); RDW Coefficient Variation 13.2 % (11.7-14.2); RDW Standard Deviation 51.3 fL (35.1-46.3); Red Blood Cell Count 3.88 M/mm3 (4.30-5.90); White Blood Cell Count 8.37 K/mm3 (4.00-11.30)
[2024-09-04 14:59] LABS: Albumin, Blood 3.3 g/dL (3.4-5.0); Albumin/Globulin Ratio 0.7 (0.8-1.8); Bilirubin, Total 0.3 mg/dL (0.1-1.0); Bun/Creatinine Ratio 14.4 (12.0-20.0); Calcium, Blood 8.9 mg/dL (8.5-10.1); Creatinine, Blood 0.97 mg/dL (0.60-1.20); Globulin, Blood 4.5 g/dL (2.2-4.0); Potassium, Blood 4.2 mmol/L (3.5-5.5); Total Protein, Blood 7.8 g/dL (6.4-8.2)
[2024-09-04 17:46] VITALS: BP 104/65
[2024-09-04] MEDS ORDERED: CEPH500 PO (17:49)
== END 2024-09-04 17:50 | disposition home or self-care (01) ==
LOC: ER 13:37
PROVIDERS: Physician Assistant
DX: L03.116 Cellulitis of left lower limb (principal); F17.200 Nicotine dependence, unspecified, uncomplicated; Z79.01 Long term (current) use of anticoagulants; Z79.82 Long term (current) use of aspirin; Z79.899 Other long term (current) drug therapy
CPT/HCPCS: 73701; 80053; 85025; 99283-25; Q9967

== ENCOUNTER 2024-09-18 01:32 | Day surgery (SDC) | payer MEDICARE ==
[2024-09-18] MEDS ORDERED: Lidocaine HCl 4% Cream 5 GM ONE (14:14)
== END 2024-09-18 23:00 | disposition home or self-care (01) ==
LOC: WOUND 01:32
DX: L97.222 Non-pressure chronic ulcer of left calf with fat layer exposed (principal); I87.2 Venous insufficiency (chronic) (peripheral); I73.9 Peripheral vascular disease, unspecified; F17.200 Nicotine dependence, unspecified, uncomplicated; I10 Essential (primary) hypertension
CPT/HCPCS: A9270; G0463

== ENCOUNTER 2024-09-25 02:16 | Day surgery (SDC) | payer MEDICARE ==
[2024-09-25] MEDS ORDERED: Lidocaine HCl 4% Cream 5 GM ONE ×2 (10:43→11:38)
== END 2024-09-25 23:00 ==
LOC: WOUND 02:16
DX: L97.225 Non-pressure chronic ulcer of left calf with muscle involvement without evidence of necrosis (principal); I87.2 Venous insufficiency (chronic) (peripheral); I73.9 Peripheral vascular disease, unspecified; Z89.511 Acquired absence of right leg below knee
CPT/HCPCS: A9270

== ENCOUNTER 2024-10-02 03:14 | Day surgery (SDC) | payer MEDICARE ==
[2024-10-02] MEDS ORDERED: Lidocaine HCl 4% Cream 5 GM ONE ×2 (10:32→10:46)
== END 2024-10-02 23:00 | disposition home or self-care (01) ==
LOC: WOUND 03:14
DX: L97.223 Non-pressure chronic ulcer of left calf with necrosis of muscle (principal); I87.2 Venous insufficiency (chronic) (peripheral); I73.9 Peripheral vascular disease, unspecified
CPT/HCPCS: A9270

== ENCOUNTER 2024-10-09 03:41 | Day surgery (SDC) | payer MEDICARE ==
[2024-10-09] MEDS ORDERED: Lidocaine HCl 4% Cream 5 GM ONE (10:25)
== END 2024-10-09 23:00 | disposition home or self-care (01) ==
LOC: WOUND 03:41
DX: L97.223 Non-pressure chronic ulcer of left calf with necrosis of muscle (principal); L03.116 Cellulitis of left lower limb; I87.2 Venous insufficiency (chronic) (peripheral); I73.9 Peripheral vascular disease, unspecified
CPT/HCPCS: A9270; G0463

== ENCOUNTER 2024-10-16 06:42 | Day surgery (SDC) | payer MEDICARE ==
[~2024-10-16] VITALS: Ht 175.3 cm; Wt 93.0 kg
[2024-10-16] VITALS (7 sets, daily range): BP systolic 112–136; BP diastolic 69–101
[~2024-10-16 06:42] MED LIST changes: +LIDOCAINE 4% CREAM
[2024-10-16] MEDS ORDERED: NS 1,000 ML IV ONE ×2 (07:29→08:24)
[2024-10-16] MEDS ORDERED: Nitroglycerin 2 MG/20 ML BTL ONE (07:29)
[2024-10-16] MEDS ORDERED: NS 500 ML IV ONE (07:29)
[2024-10-16] MEDS ORDERED: Heparin Sodium 1000 Units/ML 10ML MDV ONE ×2 (07:29→08:24)
[2024-10-16] MEDS ORDERED: Midazolam HCl 1MG / ML 2ML Vial ONE ×2 (08:35→08:56)
[2024-10-16] MEDS ORDERED: FentaNYL Citrate 50 MCG/ML 2 ML Injection ONE ×4 (08:36→09:54)
[2024-10-16] MEDS ORDERED: Verapamil HCL 2.5 MG/ML 2ML Injection ONE (09:19)
[2024-10-16] MEDS ORDERED: HydrALAZINE HCl 20 MG / ML 1ML Vial ONE (09:49)
--- NOTE | 2024-10-16 13:02 | NUR ---
PT VERBALIZED UNDERSTANDING OF WRITTEN AND VERBAL D/C INST. IV REMOVED. PT UP TO W/C /S ASSIST. TOLERATED WELL. NEG BLEEDING OR SWELLING R GROIN. PT LEFT THE DEPARTMENT VIA W/C.
== END 2024-10-16 13:00 | disposition home or self-care (01) ==
LOC: MHTC 06:42
DX: I70.249 Atherosclerosis of native arteries of left leg with ulceration of unspecified site (principal); L97.929 Non-pressure chronic ulcer of unspecified part of left lower leg with unspecified severity; I70.92 Chronic total occlusion of artery of the extremities; M19.90 Unspecified osteoarthritis, unspecified site; E78.5 Hyperlipidemia, unspecified; I10 Essential (primary) hypertension; F17.210 Nicotine dependence, cigarettes, uncomplicated; Z79.899 Other long term (current) drug therapy; Z89.611 Acquired absence of right leg above knee
CPT/HCPCS: 37227; 75625; 75716; 75774; 76937; 85347; 99152; 99153; A9270; C1725; C1760; C1769; C1874; C1885; C1887; C1894; C2623; J0360; J1644; J2250; J3010; J7030; J7050; Q9967

== ENCOUNTER 2024-10-30 02:15 | Day surgery (SDC) | payer MEDICARE | END 2024-10-30 23:00 | disposition home or self-care (01) | LOC: WOUND 02:15 | DX: L97.223 Non-pressure chronic ulcer of left calf with necrosis of muscle (principal); I87.2 Venous insufficiency (chronic) (peripheral); I73.9 Peripheral vascular disease, unspecified; Z89.511 Acquired absence of right leg below knee ==

== ENCOUNTER 2024-11-06 03:25 | Day surgery (SDC) | payer MEDICARE ==
[2024-11-06] MEDS ORDERED: Lidocaine HCl 4% Cream 5 GM ONE (12:48)
== END 2024-11-06 23:08 | disposition home or self-care (01) ==
LOC: WOUND 03:25
DX: L97.823 Non-pressure chronic ulcer of other part of left lower leg with necrosis of muscle (principal); L03.116 Cellulitis of left lower limb; I87.2 Venous insufficiency (chronic) (peripheral); I73.9 Peripheral vascular disease, unspecified; I10 Essential (primary) hypertension; E78.5 Hyperlipidemia, unspecified; F17.210 Nicotine dependence, cigarettes, uncomplicated; Z79.899 Other long term (current) drug therapy; Z89.611 Acquired absence of right leg above knee
CPT/HCPCS: A9270; G0463

== ENCOUNTER 2024-11-13 00:45 | Day surgery (SDC) | payer MEDICARE ==
[2024-11-13] MEDS ORDERED: Lidocaine HCl 4% Cream 5 GM ONE (13:21)
== END 2024-11-13 23:00 | disposition home or self-care (01) ==
LOC: WOUND 00:45
DX: L97.225 Non-pressure chronic ulcer of left calf with muscle involvement without evidence of necrosis (principal); I87.2 Venous insufficiency (chronic) (peripheral); I73.9 Peripheral vascular disease, unspecified
CPT/HCPCS: A6213; A9270

== ENCOUNTER 2024-11-22 16:13 | Inpatient (IN) | payer MEDICARE ==
[~2024-11-22] VITALS: Ht 172.7 cm; Wt 78.5 kg
[~2024-11-22 16:13] MED LIST changes: +ASPERFLEX LIDOC15 GM TOP; -LIDOCAINE 4% CREAM; +LIPITOR80 MG PO; +NS 500 ML IV SCH
[2024-11-22 18:08] LABS: BASOPHILS ABSOLUTE AUTO 0.03 K/mm3 (0.00-0.23); BASOPHILS PERCENT AUTO 0 % (0-2); EOSINOPHILS ABSOLUTE AUTO 0.01 K/mm3 (0.00-0.68); EOSINOPHILS PERCENT AUTO 0 % (0-6); IMMATURE GRAN ABSOLUTE AUTO 0.38 K/mm3 (0.00-0.10); IMMATURE GRAN PERCENT AUTO 2 % (0-1); LYMPHOCYTES ABSOLUTE AUTO 0.63 K/mm3 (0.84-5.20); LYMPHOCYTES PERCENT AUTO 3 % (21-46); MONOCYTES ABSOLUTE AUTO 0.49 K/mm3 (0.16-1.47); MONOCYTES PERCENT AUTO 2 % (4-13); Mean Corpuscular HGB Conc 33.1 g/dL (31.5-36.5); Mean Corpuscular Volume 94 fL (80-100); NEUTROPHILS ABSOLUTE AUTO 19.04 K/mm3 (1.96-9.15); NEUTROPHILS PERCENT AUTO 93 % (41-73); NRBC ABSOLUTE 0.06 K/mm3 (0.00-0.02); NRBC Auto 0.3 /100 WBC (0.0-0.2); RDW Coefficient Variation 16.1 % (11.7-14.2); RDW Standard Deviation 53.3 fL (35.1-46.3)
[2024-11-22 18:12] LABS: Hematocrit 16.3 % (37.0-53.0); Hemoglobin 5.4 g/dL (13.5-17.5)
[2024-11-22 18:34] LABS: Platelet Count 266 K/mm3 (150-400)
[2024-11-22 18:37] LABS: Alanine Aminotransfer (ALT/SGP 29.0 U/L (12-78); Albumin, Blood 2.1 g/dL (3.4-5.0); Albumin/Globulin Ratio 0.4 (0.8-1.8); Anion Gap 30.0 mmol/L (3-11); Aspartate Aminotrans (AST/SGOT 44.0 U/L (12-37); Bilirubin, Total 0.5 mg/dL (0.1-1.0); Blood Urea Nitrogen 84.0 mg/dL (8-24); C-Reactive Protein, High Sens. 183.0 mg/L (0.000-3.000); Calcium, Blood 8.3 mg/dL (8.5-10.1); Chloride, Blood 87.0 mmol/L (98-108); Creatinine, Blood 2.53 mg/dL (0.60-1.20); Globulin, Blood 4.9 g/dL (2.2-4.0); Glucose, Blood 145.0 mg/dL (70-99); Potassium, Blood 5.9 mmol/L (3.5-5.5); Sodium, Blood 120.0 mmol/L (136-145); Total Protein, Blood 7.0 g/dL (6.4-8.2)
[2024-11-22 18:39] LABS: CO2, Blood 9.0 mmol/L (21-32)
[2024-11-22] MEDS ORDERED: Vancomycin (Pharmacy Consult) IV PRN (18:45)
[2024-11-22] MEDS ORDERED: Clindamycin 900mg in D5W 50ML 50 ML IV ONE (18:45)
[2024-11-22] MEDS ORDERED: Cefepime HCl 1,000 MG in NS 100 ML IV ONE (18:45)
[2024-11-22] MEDS ORDERED: NS 1,000 ML IV SCH ×2 (20:35→20:40)
[2024-11-22] MEDS ORDERED: Naloxone HCl 0.4MG / ML 1ML Vial IV PRN (20:55)
[2024-11-22] MEDS ORDERED: Vancomycin (Pharmacy Consult) IV SCH (21:00)
[2024-11-22] MEDS ORDERED: Sodium Bicarb 8.4% Inj 150 MEQ in Dextrose 5% 1,000 ML IV SCH (21:00)
[2024-11-22] MEDS ORDERED: Lactobacil 2-S.Thermo-Bifido 1 1 Cap PO SCH (21:00)
[2024-11-22 21:17] LABS: pH Blood Venous 7.35 (7.34-7.37)
[2024-11-22 22:06] LABS: Magnesium, Blood 2.6 mg/dL (1.6-2.4)
[2024-11-22 22:18] LABS: Alanine Aminotransfer (ALT/SGP 46.0 U/L (12-78); Albumin, Blood 2.0 g/dL (3.4-5.0); Albumin/Globulin Ratio 0.4 (0.8-1.8); Aspartate Aminotrans (AST/SGOT 93.0 U/L (12-37); Bilirubin, Total 0.5 mg/dL (0.1-1.0); Blood Urea Nitrogen 85.0 mg/dL (8-24); CO2, Blood 17.0 mmol/L (21-32); Calcium, Blood 7.7 mg/dL (8.5-10.1); Chloride, Blood 90.0 mmol/L (98-108); Creatinine, Blood 2.26 mg/dL (0.60-1.20); Globulin, Blood 4.6 g/dL (2.2-4.0); Glucose, Blood 146.0 mg/dL (70-99); Phosphorus, Blood 5.3 mg/dL (2.5-4.9); Potassium, Blood 5.3 mmol/L (3.5-5.5); Total Protein, Blood 6.6 g/dL (6.4-8.2)
[2024-11-22 22:19] LABS: Anion Gap 16.0 mmol/L (3-11); Sodium, Blood 118.0 mmol/L (136-145)
[2024-11-22 23:00] VITALS: BP 139/75
[2024-11-22] MEDS ORDERED: FentaNYL Citrate 50 MCG/ML 2 ML Injection IV PRN (23:10)
[2024-11-22 23:30] VITALS: BP 143/67
[2024-11-22] MEDS ORDERED: XARELTO20 MG PO (23:31)
[2024-11-23] VITALS (24 sets, daily range): BP systolic 96–159; BP diastolic 59–102
[2024-11-23] MEDS ORDERED: NS 500 ML IV SCH ×2 (00:45→02:55)
--- NOTE | 2024-11-23 01:01 | NUR ---
ADMISSION NOTE PT ARRIVED AT 2229 VIA GURNEY FROM ED WITH 1 UNIT OF PRBC'S TRANSFUSING AT 100 ML/HR. PT IN MILD DISTRESS, FROM PAIN. PT SAFELY TRANSFERRED TO ICU BED IN ROOM 5. PT AFEBRILE WITH STABLE VITAL SIGNS. BICARB DRIP STARTED AT 150ML/HR BUT WAS QUICKLY D/C'D BY A PROVIDER. PT ALERT AND ORIENTED TO ALL. PAIN 8/10 IN BUTTOCKS DUE TO LARGE UNSTAGEABLE WOUND- NO TIME TO SUPINE SIGN HUNG ON WALL OUTSIDE OF ROOM. WOUND IN LEFT LEG COVERED IN PETROLEUM GAUZE X 3 THE MEPILEX THEN WRAPPED IN GAUZE. 97.0 F. PAIN 8/10, IN LEG AND BUTTOCKS- PT GIVEN 5MG OXYCODONE 30 MIN BEFORE ADMISSION BUT PT TELLS ME HE HAS BEEN PRESCRIBED 20MG BID OXYCODONE SO FURTHER PAIN CONTROL ADVACOSY MAY BE REQUIRED SINUS RHYTHM 88 BPM BORDERING ON IRREGULAR. BP STABLE 140/80 RICARDO. > 92% SAT ON RA. PT DENIES CHEST PAIN/PRESSURE, SOB, AB PAIN, N/V. PT HAS 2 AC PIV'S.
[2024-11-23 02:20] LABS: BASOPHILS ABSOLUTE AUTO 0.02 K/mm3 (0.00-0.23); BASOPHILS PERCENT AUTO 0 % (0-2); EOSINOPHILS ABSOLUTE AUTO 0.01 K/mm3 (0.00-0.68); EOSINOPHILS PERCENT AUTO 0 % (0-6); Hemoglobin 6.1 g/dL (13.5-17.5); IMMATURE GRAN ABSOLUTE AUTO 0.17 K/mm3 (0.00-0.10); IMMATURE GRAN PERCENT AUTO 1 % (0-1); LYMPHOCYTES ABSOLUTE AUTO 0.72 K/mm3 (0.84-5.20); LYMPHOCYTES PERCENT AUTO 6 % (21-46); MONOCYTES ABSOLUTE AUTO 0.17 K/mm3 (0.16-1.47); MONOCYTES PERCENT AUTO 1 % (4-13); Mean Corpuscular HGB Conc 34.3 g/dL (31.5-36.5); Mean Corpuscular Volume 91 fL (80-100); NEUTROPHILS ABSOLUTE AUTO 11.74 K/mm3 (1.96-9.15); NEUTROPHILS PERCENT AUTO 92 % (41-73); NRBC ABSOLUTE 0.00 K/mm3 (0.00-0.02); NRBC Auto 0.0 /100 WBC (0.0-0.2); Platelet Count 172 K/mm3 (150-400); RDW Coefficient Variation 14.8 % (11.7-14.2); RDW Standard Deviation 47.3 fL (35.1-46.3)
[2024-11-23 02:25] LABS: Hematocrit 17.8 % (37.0-53.0)
[2024-11-23 02:34] LABS: Alanine Aminotransfer (ALT/SGP 59.0 U/L (12-78); Albumin, Blood 2.0 g/dL (3.4-5.0); Albumin/Globulin Ratio 0.5 (0.8-1.8); Anion Gap 14.0 mmol/L (3-11); Aspartate Aminotrans (AST/SGOT 134.0 U/L (12-37); Bilirubin, Total 0.8 mg/dL (0.1-1.0); Blood Urea Nitrogen 77.0 mg/dL (8-24); CO2, Blood 20.0 mmol/L (21-32); Calcium, Blood 7.7 mg/dL (8.5-10.1); Chloride, Blood 94.0 mmol/L (98-108); Creatinine, Blood 1.93 mg/dL (0.60-1.20); Globulin, Blood 4.3 g/dL (2.2-4.0); Glucose, Blood 138.0 mg/dL (70-99); Potassium, Blood 4.6 mmol/L (3.5-5.5); Sodium, Blood 123.0 mmol/L (136-145); Total Protein, Blood 6.3 g/dL (6.4-8.2)
--- NOTE | 2024-11-23 06:13 | NUR ---
SHIFT SUMMARY PT LYING IN BED SLEEPING, AWAKES TO VOICE AND IS ALERT AND ORIENTED TO ALL, THOUGH VOICE IS RASPY (NEW ISSUE X 3 WEEKS). PAIN HAS BEEN TREATED WITH SLEEP, REPOSITION AND MEDS, BUT PAIN SCORE NEVER DECREASED LOWER THAN 6/10. MAY NEED ADDITIONAL PHARMACOLOGICAL INTERVENTION. 2 UNITS PRBCS ADMINISTERED. LAST HGB 6.1; NEXT H&H SCHEDULED FOR 0930. HR 80-100 AND SINUSRHYTHM WITH OCCASIONAL IRREGULAR. BP STABLE. 500ML BOLUS OF NS GIVEN WITH 500ML MORE OF NS AT 75 ML/HR. O2 SAT REMAINED ABOVE 92% ON RA; LUNGS SOUNDS DIMINISHED THROUGHOUT. PT DENIED CHEST PAIN/PRESSURE, SOB, AB PAIN, N/V AL SHIFT. NO BM. 600ML OF TEA COLORED URINE RECEIVED IN URINAL EARLY IN SHIFT. 2 PIV'S REMAIN IN BOTH AC'S WITH 18 GAUGE ON RIGHT AND 20G ON LEFT. LEG WOUND WRAPPED WITH XEROFORM PETROLEUM SHEETS, SUPPORTED WITH MEPILEX AND WRAPPED WITH GAUZE. COCCYX WOUND IS CURRENTLY UNCOVERED DUE TO SIZE- Q 2HR TURNS HAVE BEEN UTILIZED. 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 BEDSIDE SHIFT REPORT GIVEN TO ONCOMING RN.
[2024-11-23] MEDS ORDERED: Clindamycin 900mg in D5W 50ML 50 ML IV SCH (08:00)
[2024-11-23] MEDS ORDERED: VENL75ER PO (08:34)
--- NOTE | 2024-11-23 09:07 | NUR ---
AT SHIFT CHANGE, REPORT AT BEDSIDE. PT'S COCCYX WOUND VIEWED AND DRESSED WITH MEDIHONEY AND FOAM DRESSING, VERY PAINFUL TO PATIENT. PT ENCOURAGED TO BE TOTALLY ON HIS SIDE AND NOT TO LAY ON HIS BACK AT ALL. UNDERSTOOD.
[2024-11-23 10:08] LABS: Hematocrit 22.3 % (37.0-53.0); Hemoglobin 7.8 g/dL (13.5-17.5)
--- NOTE | 2024-11-23 10:26 | NUR ---
DISCUSSED LAB RESULTS WITH , PLAN TO DO SURGERY TOMORROW, WILL FEED PATIENT TODAY. PLAN FOR NPO AFTER MIDNIGHT. ANOTHER HARD TURN TO THE LEFT SIDE, PT UNDERSTANDS NEED TO REMAIN OFF BUTTOCKS.
[2024-11-23 10:27] LABS: Anion Gap 13.0 mmol/L (3-11); Blood Urea Nitrogen 69.0 mg/dL (8-24); CO2, Blood 21.0 mmol/L (21-32); Calcium, Blood 7.9 mg/dL (8.5-10.1); Chloride, Blood 97.0 mmol/L (98-108); Creatinine, Blood 1.45 mg/dL (0.60-1.20); Glucose, Blood 118.0 mg/dL (70-99); Potassium, Blood 4.1 mmol/L (3.5-5.5); Sodium, Blood 127.0 mmol/L (136-145)
[2024-11-23] MEDS ORDERED: NS 500 ML IV ONE (12:48)
[2024-11-23] MEDS ORDERED: Heparin Sodium 1000 Units/ML 10ML MDV ONE ×2 (12:48→12:49)
[2024-11-23] MEDS ORDERED: NS 1,000 ML IV ONE ×2 (12:48→12:49)
[2024-11-23] MEDS ORDERED: Nitroglycerin 2 MG/20 ML BTL ONE (12:48)
[2024-11-23] MEDS ORDERED: NS 100 ML IV ONE (13:01)
[2024-11-23] MEDS ORDERED: FentaNYL Citrate 50 MCG/ML 2 ML Injection ONE (13:25)
[2024-11-23] MEDS ORDERED: Midazolam HCl 1MG / ML 2ML Vial ONE (13:25)
--- NOTE | 2024-11-23 13:30 | NUR ---
NEEDLE PUNCH MACHINE OPERATOR HELPER CALLED TO INQUIRE OF PATIENT, NO ORDERS ON THE CHART FOR DR.MC JACINTO TO SEE PATIENT. HAD DISCUSSED THE AMPUTATION FOR TOMORROW, PT WAS UNAWARE THAT HE WAS TO SEE DR.MC JACINTO. THIS WAS COMMUNICATED TO NEEDLE PUNCH MACHINE OPERATOR HELPER TEAM. WAS CALLED THERE WAS NO ORDER FOR DR.MC JACINTO CONSULT. SHE THEN CONTACTED . DR.MC JACINTO CAME TO SEE PATIENT, DISCUSSED PROCEDURE AND PT WAS TAKEN TO NEEDLE PUNCH MACHINE OPERATOR HELPER FOR REPERFUSION OF LEFT UPPER EXTREMITY. PT HAS REMAINED NPO.
--- NOTE | 2024-11-23 14:49 | NUR ---
BACK FROM HEARING AID FITTER TO ICU 5 AWAKE ALERT ORIENTED TO PERSON/PLACE/SITUATION PATIENT HAS POSITIVE DOPPLER DP PULSE TO RIGHT FOOT. TOES ARE STILL COLD TO TOUCH. PATIENT HAS RIGHT GROIN ANGIOSEAL SITE. SOFT TO PALPATE WITH SMALL DIME SIZE BRANDIE IN MIDDLE OF DRESSING/ PER [facility]... THAT IS THE ANGIOSEAL. PATIENT BACK ON ICU MONITORS. VS STABLE. AWAITING HEARING AID FITTER ORDERS FOR HEPARIN FROM DR WAGONER.
[2024-11-23 15:37] LABS: Vancomycin, Random 15.1 ug/mL
[2024-11-23 16:24] LABS: Hematocrit 22.1 % (37.0-53.0); Hemoglobin 7.7 g/dL (13.5-17.5)
[2024-11-23 16:40] LABS: Prothrombin Time Results 12.4 Sec (9.7-11.5)
[2024-11-23] MEDS ORDERED: Dose Adjust by Pharmacy XX STA ×2 (16:44→23:57)
[2024-11-23] MEDS ORDERED: Heparin Sodium,Porcine/0.5 NS 500 ML IV SCH (16:45)
[2024-11-23] MEDS ORDERED: Guaifenesin/Dextromethorphan Syrup 5 ML UDC PO ONE (16:50)
--- NOTE | 2024-11-23 18:45 | NUR ---
PILI WENT THROUGH [employer] WORKER PROCEDURE WELL, HIS RIGHT GROIN SITE IS CLEAN AND DRY, NO HEMATOMA. PT HAS BEEN GIVEN THE EXPECTORANT TO HELP WITH HIS PHLEGM. HE STATES HE HAS BEEN EXPERIENCING THIS FOR A COUPLE OF WEEKS. HE IS EXPERIENCING SOME ITCHING WITH HIS LEFT LEG SINCE HIS RETURN FROM [facility] WORK[facility]. HE CONTINUES TO OOZE FROM HIS BOTTOM AND IT REMAINS VERY TENDER. HE IS ABLE TO VOID USING THE URINAL. HEPARIN DRIP HAS BEEN STARTED WITH GUIDANCE FROM THE PHARMACY. HE IS ANTICIPATING SURGERY TOMORROW FOR THE LEFT BKA.
--- NOTE | 2024-11-23 19:17 | NUR ---
ASSUMPTION OF CARE CARE OF PT ASSUMED FOLLOWING BEDSIDE SHIFT REPORT FROM DAY RN. PT LYING IN BED IN NO APPARENT DISTRESS. PT IS IN SOME PAIN- WILL TREAT ACCORDINGLY. AFEBRILE. SINUS RHYTHM 93 WITH BP OF 129/70. RESPIRATIONS REGULAR AND WITHOUT EXTRA EFFORT, RATE OF 20/MIN. LUNG SOUNDS DIMINISHED THROUGHOUT. PT DENIES CHEST PAIN/PRESSURE OR SOB. BOWEL SOUNDS ACTIVE AND PT DENIES AB PAIN, N/V.
[2024-11-23] MEDS ORDERED: Guaifenesin/Dextromethorphan Syrup 5 ML UDC PO PRN (22:00)
[2024-11-24] VITALS (24 sets, daily range): BP systolic 82–137; BP diastolic 52–107
[2024-11-24] MEDS ORDERED: FentaNYL Citrate 50 MCG/ML 2 ML Injection IV PRN ×3 (03:35→12:05)
[2024-11-24] MEDS ORDERED: HYDROmorphone HCl/Pf 1MG SYR IV PRN ×3 (05:40→12:00)
--- NOTE | 2024-11-24 06:30 | NUR ---
SHIFT SUMMARY PT LYING IN BED WITH HARD RIGHT TURN, IN NO APPARENT DISTRESS. ALERT AND ORIENTED TO ALL, MUMBLE VOICE SLIGHTLY IMPROVED. PT HAS USED THE FLUTTER DEVICE SEVERAL TIMES. VSS. SINUS RHYTHM HIGH 80'S AND STABLE BP. O2 SAT > 92% ON RA. NO CHEST PAIN/PRESSURE OR SOB THROUGHOUT SHIFT. LUNG SOUNDS DIMINISHED THROUGHOUT. NO BM. 1250 MELVIN COLORED URINE OUTPUT VIA URINAL. HEPARIN INFUSING AT 15 UNITS/KG/HR. PT SAYS FENTANYL DOESN'T WORK WELL THE LARGE DOSE OF OXYCODONE HE RECEIVES AT HOME, AND PT STARTED YELLING OUT IN PAIN AFTER A TURN AT 0530. PROVIDER CALLED AND A 6 DOSE ORDER OF DILAUDID PLACED AND ONE DOSE GIVEN WITH SOME AMELIORATION (PT TENDS TO MUMBLE WHEN I ASK FOR A SPECIFIC PAIN SCORE). PT HAS BEEN NPO SINCE MIDNIGHT EXCEPT FOR 100ML OF WATER BETWEEN 000 AND 0400. LEFT LEG DRESSING STILL IN PLACE AND DRESSING ON COCCYX STILL IN PLACE. BEDSIDE SHIFT REPORT GIVEN TO ONCOMING RN.
[2024-11-24 06:40] LABS: BASOPHILS ABSOLUTE AUTO 0.01 K/mm3 (0.00-0.23); BASOPHILS PERCENT AUTO 0 % (0-2); EOSINOPHILS ABSOLUTE AUTO 0.04 K/mm3 (0.00-0.68); EOSINOPHILS PERCENT AUTO 0 % (0-6); Hematocrit 20.1 % (37.0-53.0); Hemoglobin 7.0 g/dL (13.5-17.5); IMMATURE GRAN ABSOLUTE AUTO 0.20 K/mm3 (0.00-0.10); IMMATURE GRAN PERCENT AUTO 1 % (0-1); LYMPHOCYTES ABSOLUTE AUTO 1.01 K/mm3 (0.84-5.20); LYMPHOCYTES PERCENT AUTO 7 % (21-46); MONOCYTES ABSOLUTE AUTO 0.54 K/mm3 (0.16-1.47); MONOCYTES PERCENT AUTO 4 % (4-13); Mean Corpuscular HGB Conc 34.8 g/dL (31.5-36.5); Mean Corpuscular Volume 90 fL (80-100); NEUTROPHILS ABSOLUTE AUTO 12.45 K/mm3 (1.96-9.15); NEUTROPHILS PERCENT AUTO 87 % (41-73); NRBC ABSOLUTE 0.03 K/mm3 (0.00-0.02); NRBC Auto 0.2 /100 WBC (0.0-0.2); Platelet Count 117 K/mm3 (150-400); RDW Coefficient Variation 15.9 % (11.7-14.2); RDW Standard Deviation 50.0 fL (35.1-46.3)
[2024-11-24 07:00] LABS: Alanine Aminotransfer (ALT/SGP 196.0 U/L (12-78); Albumin, Blood 1.8 g/dL (3.4-5.0); Albumin/Globulin Ratio 0.4 (0.8-1.8); Anion Gap 10.0 mmol/L (3-11); Aspartate Aminotrans (AST/SGOT 283.0 U/L (12-37); Bilirubin, Total 0.5 mg/dL (0.1-1.0); Blood Urea Nitrogen 48.0 mg/dL (8-24); CO2, Blood 24.0 mmol/L (21-32); Calcium, Blood 7.9 mg/dL (8.5-10.1); Chloride, Blood 98.0 mmol/L (98-108); Creatinine, Blood 0.99 mg/dL (0.60-1.20); Globulin, Blood 4.2 g/dL (2.2-4.0); Glucose, Blood 130.0 mg/dL (70-99); Potassium, Blood 3.9 mmol/L (3.5-5.5); Sodium, Blood 128.0 mmol/L (136-145); Total Protein, Blood 6.0 g/dL (6.4-8.2)
--- NOTE | 2024-11-24 07:39 | NUR ---
CALL TO , RESULT OF AM LAB. ORDERS RECEIVED, EKG BEING DONE FOR PRE OP. ECHO SCHEDULED, HEPARIN DRIP STOPPED PER ORDERS.
[2024-11-24] MEDS ORDERED: FentaNYL Citrate 50 MCG/ML 2 ML Injection ONE (09:29)
[2024-11-24] MEDS ORDERED: Midazolam HCl 1MG / ML 2ML Vial ONE (09:30)
--- NOTE | 2024-11-24 10:33 | NUR ---
PT INTO SDS FROM ICU 5 (PCU STATUS). PT CURRENTLY FINISHING 1 PRBC. PT HERE FOR LEFT BKA. DR. GREENFIELD AT . PT CONSENTED FOR SURGERY ALREADY IN ICU PER DR. CAMPBELL AND LEFT LEG IS MARKED. PT CONSTENTED PER DR. GREENFIELD FOR GENERAL ANESTHESIA, POPLITEAL AND FEMORAL NERVE BLOCK. TIME OUT PREFORMED AT 1030. PT ON 02@2L/MIN VIA NC. MEDICATED W/ 2 MG VERSED IV AND 50 MCG FENTANYL IV PRE PROCEDURE. PT TOW
--- NOTE | 2024-11-24 10:37 | NUR ---
DAY SURGERY STAFF CAME TO GET RAY FOR SURGERY. HIS BLOOD WAS NEARLY COMPLETE, REMOVED FROM THE PUMP AND GRAVITY FED THE LAST 50ML. REPORT GIVEN TO SERGIO RN.
[2024-11-24] MEDS ORDERED: Phenylephrine HCl 100 MCG/ML-NS 10MLSYR (1MG/10ML) ONE (11:44)
[2024-11-24] MEDS ORDERED: ePHEDrine Sulfate 50 MG/ML 1ML Injection ONE (11:49)
[2024-11-24 12:00] LABS: BASOPHILS ABSOLUTE AUTO 0.01 K/mm3 (0.00-0.23); BASOPHILS PERCENT AUTO 0 % (0-2); EOSINOPHILS ABSOLUTE AUTO 0.07 K/mm3 (0.00-0.68); EOSINOPHILS PERCENT AUTO 1 % (0-6); Hematocrit 21.4 % (37.0-53.0); Hemoglobin 7.5 g/dL (13.5-17.5); IMMATURE GRAN ABSOLUTE AUTO 0.15 K/mm3 (0.00-0.10); IMMATURE GRAN PERCENT AUTO 1 % (0-1); LYMPHOCYTES ABSOLUTE AUTO 1.11 K/mm3 (0.84-5.20); LYMPHOCYTES PERCENT AUTO 10 % (21-46); MONOCYTES ABSOLUTE AUTO 0.49 K/mm3 (0.16-1.47); MONOCYTES PERCENT AUTO 4 % (4-13); Mean Corpuscular HGB Conc 35.0 g/dL (31.5-36.5); Mean Corpuscular Volume 90 fL (80-100); NEUTROPHILS ABSOLUTE AUTO 9.38 K/mm3 (1.96-9.15); NEUTROPHILS PERCENT AUTO 84 % (41-73); NRBC ABSOLUTE 0.03 K/mm3 (0.00-0.02); NRBC Auto 0.3 /100 WBC (0.0-0.2); Platelet Count 105 K/mm3 (150-400); RDW Coefficient Variation 15.7 % (11.7-14.2); RDW Standard Deviation 48.8 fL (35.1-46.3)
[2024-11-24] MEDS ORDERED: Ondansetron HCl 2 MG / ML 2ML Vial IV PRN (12:00)
[2024-11-24] MEDS ORDERED: Ondansetron HCl 2 MG / ML 2ML Vial ONE (12:36)
--- NOTE | 2024-11-24 14:26 | NUR ---
PT RETURNS FROM OR AT 1405. VSS. PT ALERT AND CALM.
[2024-11-24 16:17] LABS: Vancomycin, Trough 15.9 ug/mL (5.0-10.0)
[2024-11-24] MEDS ORDERED: Lidocaine 2% Viscous Soln 20 ML,Nystatin 100,000 Unit/ml Susp 20 ML,Mag Hydrox/Al Hydro... MT SCH (17:00)
[2024-11-24 17:06] LABS: BASOPHILS ABSOLUTE AUTO 0.01 K/mm3 (0.00-0.23); BASOPHILS PERCENT AUTO 0 % (0-2); EOSINOPHILS ABSOLUTE AUTO 0.30 K/mm3 (0.00-0.68); EOSINOPHILS PERCENT AUTO 3 % (0-6); Hematocrit 21.2 % (37.0-53.0); Hemoglobin 7.4 g/dL (13.5-17.5); IMMATURE GRAN ABSOLUTE AUTO 0.09 K/mm3 (0.00-0.10); IMMATURE GRAN PERCENT AUTO 1 % (0-1); LYMPHOCYTES ABSOLUTE AUTO 1.41 K/mm3 (0.84-5.20); LYMPHOCYTES PERCENT AUTO 15 % (21-46); MONOCYTES ABSOLUTE AUTO 0.39 K/mm3 (0.16-1.47); MONOCYTES PERCENT AUTO 4 % (4-13); Mean Corpuscular HGB Conc 34.9 g/dL (31.5-36.5); Mean Corpuscular Volume 90 fL (80-100); NEUTROPHILS ABSOLUTE AUTO 7.17 K/mm3 (1.96-9.15); NEUTROPHILS PERCENT AUTO 77 % (41-73); NRBC ABSOLUTE 0.03 K/mm3 (0.00-0.02); NRBC Auto 0.3 /100 WBC (0.0-0.2); Platelet Count 98 K/mm3 (150-400); RDW Coefficient Variation 15.8 % (11.7-14.2); RDW Standard Deviation 49.0 fL (35.1-46.3)
[2024-11-24] MEDS ORDERED: Arginine/Glutamine/Calcium Hmb 1 Packet PO SCH (21:00)
--- NOTE | 2024-11-24 21:14 | NUR ---
ASSUMPTION OF CARE: ASSUMED CARE OF PT WITH YOGI MCCARTHY AT 1900. PT ALERT AND ORIENTED. FOLLOWS DIRECTION AND MAKES NEEDS KNOWN. PT ON RA WITH SPO2 MID 90'S WITH SPOT CHECK. DENIES SOB. LUNGS CLEAR/DIM. VIBRATION ANALYST IN PLACE, SR WITH PAC/PVC'S AND IRREGULARITY AT TIMES. SBP 90'S WITH MAP >65. HR 90'S. DENIES CP. PIV TO LFA, LAC AND RFA ALL PATENT AND SALINE LOCKED. PT ENDORSING PAIN IN LEFT LEG, MEDICATED PER EMAR. LEFT STUMP HAS NO SIGNS OF BLEEDING, STUMP SOCK IN PLACE AND INTACT. DRESSING TO COCCYX INACT. DRESSING ON LEFT ARM INTACT. PT VOIDING INTO URINAL. NO BM YET. TOLERATING PO INTAKE. USING CALL LIGHT NEEDED. BED LOCKED AND LOW.
[2024-11-25] VITALS (24 sets, daily range): BP systolic 76–150; BP diastolic 44–114
[2024-11-25 04:35] LABS: BASOPHILS ABSOLUTE AUTO 0.01 K/mm3 (0.00-0.23); BASOPHILS PERCENT AUTO 0 % (0-2); EOSINOPHILS ABSOLUTE AUTO 0.26 K/mm3 (0.00-0.68); EOSINOPHILS PERCENT AUTO 3 % (0-6); Hematocrit 22.3 % (37.0-53.0); Hemoglobin 7.4 g/dL (13.5-17.5); Mean Corpuscular HGB Conc 33.2 g/dL (31.5-36.5); Mean Corpuscular Volume 91 fL (80-100); NRBC ABSOLUTE 0.04 K/mm3 (0.00-0.02); NRBC Auto 0.5 /100 WBC (0.0-0.2); Platelet Count 91 K/mm3 (150-400); RDW Coefficient Variation 16.1 % (11.7-14.2); RDW Standard Deviation 52.0 fL (35.1-46.3)
[2024-11-25 04:36] LABS: IMMATURE GRAN ABSOLUTE AUTO 0.09 K/mm3 (0.00-0.10); IMMATURE GRAN PERCENT AUTO 1 % (0-1); LYMPHOCYTES ABSOLUTE AUTO 1.59 K/mm3 (0.84-5.20); LYMPHOCYTES PERCENT AUTO 20 % (21-46); MONOCYTES ABSOLUTE AUTO 0.41 K/mm3 (0.16-1.47); MONOCYTES PERCENT AUTO 5 % (4-13); NEUTROPHILS ABSOLUTE AUTO 5.42 K/mm3 (1.96-9.15); NEUTROPHILS PERCENT AUTO 70 % (41-73)
[2024-11-25 04:56] LABS: Alanine Aminotransfer (ALT/SGP 140.0 U/L (12-78); Albumin, Blood 1.7 g/dL (3.4-5.0); Albumin/Globulin Ratio 0.4 (0.8-1.8); Anion Gap 9.0 mmol/L (3-11); Aspartate Aminotrans (AST/SGOT 143.0 U/L (12-37); Bilirubin, Total 0.4 mg/dL (0.1-1.0); Blood Urea Nitrogen 36.0 mg/dL (8-24); CO2, Blood 27.0 mmol/L (21-32); Calcium, Blood 7.6 mg/dL (8.5-10.1); Chloride, Blood 99.0 mmol/L (98-108); Creatinine, Blood 0.8 mg/dL (0.60-1.20); Globulin, Blood 4.0 g/dL (2.2-4.0); Glucose, Blood 109.0 mg/dL (70-99); Potassium, Blood 4.0 mmol/L (3.5-5.5); Sodium, Blood 131.0 mmol/L (136-145); Total Protein, Blood 5.7 g/dL (6.4-8.2)
--- NOTE | 2024-11-25 05:44 | NUR ---
SHIFT SUMMARY: PT REMAINED ALERT AND ORIENTED T/O THE SHIFT. ABLE TO REST MINIMALLY. REMAINED ON RA WITH SPO2 94-96%. DENIED ANY SOB. PT PCU STATUS. SBP 80-90'S WITH MAP >65. DENIED CP/PRESSURE. REMAINED SR WITH PVC'S/PAC'S WITH HR 90'S. ABLE TO VOID INTO URINAL T/O THE NIGHT. ABLE TO EAT/DRINK TOLERATED WITH SORES IN PT'S MOUTH. PIV'S REMAINED PATENT. DRESSING CHANGE THIS SHIFT TO COCCYX WOUND. DRAINING MODERATE AMOUNT OF YELLOW/REDDISH LIQUID. L BKA SITE REMAINED FREE FROM BLEEDING, STUMP SOCK IN PLACE. BED LOCKED, CALL LIGHT IN REACH.
--- NOTE | 2024-11-25 08:30 | NUR ---
wound care PATIENT recieved pain medication iv. patient had a small smeary stool and was complaining of burning on his bottom. Stool was cleaned with a wound cleanser and wet damp cloth. After pictures were taken, put meta honey then petrolium gauze on wound then non adherient dressing on top of that and then an ABD pad and secured with a mefix dressing around edges/ however no stickiness on open skin.
[2024-11-25 17:10] LABS: Hematocrit 21.1 % (37.0-53.0); Hemoglobin 7.2 g/dL (13.5-17.5)
[2024-11-25] MEDS ORDERED: Amiodarone HCl 450 MG in Dextrose 5% 500 ML IV SCH (17:30)
[2024-11-25] MEDS ORDERED: Amiodarone HCl 450 MG in NS 250 ML IV SCH (17:35)
[2024-11-25 17:36] LABS: Magnesium, Blood 1.5 mg/dL (1.6-2.4); Potassium, Blood 3.3 mmol/L (3.5-5.5); Thyroid Stimulating Hormone 2.17 uIU/mL (0.360-4.800)
[2024-11-25] MEDS ORDERED: Magnesium Sulf 2 GM/Water 50ML 50 ML IV ONE (18:20)
--- NOTE | 2024-11-25 18:37 | NUR ---
Patient s/p L BKA (11/24/24) Patient required PRN fentanyl for morning dressing change, do to 10/10 pain, however, after wound care patient reported decrease in pain level. Restarted Eliquis at 12:00, gave patient education on anticoagulation therapy. around 13:00 patient requested bedpan, dispite being continent sacral wounds still became soiled and patient given PRN pain meds for 10/10 pain, wound dressings changed, noted stool black in color. Dr Arenas notified, ordered for H/H at 17:00 and pantoprazole 40mg BID. aproximately 15:45 a rate change noted in patient with HR in the 160's 12-lead done, atrial flutter per 12-lead. (see 12-lead for full finding) Dr Arenas notified. Amiodarone bolus ordered. Patient's HR dropped to the 120's. echocardiogram ordered. HR returned to the 160's around 18:00, Dr Arenas notified, ordered Amiodarone infusion and electrolyte replacement. Patient today diet was advanced to regular diet. Patient had poor appetite today. Ensure HP ordered for nutritional needs with wounds.
[2024-11-25] MEDS ORDERED: NS 1,000 ML IV ONE (20:20)
[2024-11-26] VITALS (20 sets, daily range): BP systolic 87–129; BP diastolic 56–92
[2024-11-26 03:43] LABS: Hematocrit 25.2 % (37.0-53.0); Hemoglobin 8.2 g/dL (13.5-17.5); Mean Corpuscular HGB Conc 32.5 g/dL (31.5-36.5); Mean Corpuscular Volume 94 fL (80-100); NRBC ABSOLUTE 0.04 K/mm3 (0.00-0.02); NRBC Auto 0.5 /100 WBC (0.0-0.2); Platelet Count 80 K/mm3 (150-400); RDW Coefficient Variation 16.0 % (11.7-14.2); RDW Standard Deviation 53.0 fL (35.1-46.3)
[2024-11-26 04:35] LABS: Alanine Aminotransfer (ALT/SGP 111.0 U/L (12-78); Albumin, Blood 1.6 g/dL (3.4-5.0); Albumin/Globulin Ratio 0.4 (0.8-1.8); Anion Gap 10.0 mmol/L (3-11); Aspartate Aminotrans (AST/SGOT 97.0 U/L (12-37); Bilirubin, Total 0.5 mg/dL (0.1-1.0); Blood Urea Nitrogen 17.0 mg/dL (8-24); CO2, Blood 24.0 mmol/L (21-32); Calcium, Blood 7.4 mg/dL (8.5-10.1); Chloride, Blood 102.0 mmol/L (98-108); Creatinine, Blood 0.69 mg/dL (0.60-1.20); Globulin, Blood 4.1 g/dL (2.2-4.0); Glucose, Blood 96.0 mg/dL (70-99); Potassium, Blood 3.7 mmol/L (3.5-5.5); Sodium, Blood 132.0 mmol/L (136-145); Total Protein, Blood 5.7 g/dL (6.4-8.2)
[2024-11-26 05:22] LABS: BASOPHILS ABSOLUTE MAN 0.00 K/mm3 (0.00-0.23); BASOPHILS PERCENT MAN 0 % (0-2); EOSINOPHILS ABSOLUTE MAN 0.15 K/mm3 (0.00-0.68); EOSINOPHILS PERCENT MAN 2 % (0-6); LYMPHOCYTES ABSOLUTE MAN 2.09 K/mm3 (0.84-5.20); LYMPHOCYTES PERCENT MAN 27 % (21-46); METAMYELOCYTE ABSOLUTE MAN 0.07 K/mm3 (0.00-0.00); METAMYELOCYTE PERCENT MAN 1 % (0-0); MONOCYTES ABSOLUTE MAN 0.23 K/mm3 (0.16-1.47); MONOCYTES PERCENT MAN 3 % (4-13); MYELOCYTE ABSOLUTE MAN 0.07 K/mm3 (0.00-0.00); MYELOCYTE PERCENT MAN 1 % (0-0); NEUTROPHILS ABSOLUTE MAN 5.11 K/mm3 (1.96-9.15); SEG NEUTROPHILS PERCENT MAN 66 % (41-73)
--- NOTE | 2024-11-26 07:38 | NUR ---
END OF DIRECTOR INPATIENT HEADACHE PROGRAM SUMMARY: PATIENT ALERT AND ORIENT X4. REPORTS CONSTANT 10/10 PAIN TO SACRUM. FULL WOUND CARE PROVDED TO SACRUM X2. FLEXI PLACED TO PROMOTE WOUND HEALING/MAINTAIN A HEALTHY WOUND HEALING ENVIRONMENT. LIQUID DARK BROWN STOOL NOTED X3 THIS SHIFT. PREMEDICATED PRIOR TO WOUND CARE AND MEDICATED FOR PAIN PER PRN ORDER. MOVES EXTREM. X4. REMAINS ON Q2 TURN SCHEDULE. EXTREM. FLOATED WITH PILLOWS. REMAINS ON AMIODARONE AT 0.5 MG/HR. CONVERTED TO NSR WITH FREQUENT PACS AT 2130. RA. HYPOTENSIVE AT START OF SHIFT. PER MD 1L NS BOLUS X1. TREATEMENT EFFECTIVE FOR BP MANAGEMENT AND MAINTAINED SBP >90 FOLLOWING TREATMENT. REPORTING INTERMITTENT DIFFICULTY SWALLOWING "ONLY WHEN I AM NOT HUNGARY". SPEECH CONSULTED. URINAL USED INDEPENDENTLY THIS SHIFT. SAFETY AND COMFORT MAINTAINED AND ALL NEEDS ADRESSED THEY AROSE.
[2024-11-26] MEDS ORDERED: NS 100 ML IV ONE (08:24)
[2024-11-26] MEDS ORDERED: Diphenoxylat/Atrop 2.5 / 0.025MG 1 Tab PO PRN (09:10)
[2024-11-26 15:06] LABS: Hematocrit 21.5 % (37.0-53.0); Hemoglobin 7.2 g/dL (13.5-17.5)
--- NOTE | 2024-11-26 17:16 | NUR ---
SHIFT SUMMARY... PATIENT A&0X4 AND ABLE TO MAKE NEEDS KNOWN. RHYTHM CHANGED FROM SINUS TO AFIB INTERMITTENTLY THROUGHOUT THE SHIFT WITH RATES IN THE 90S-110S. BP STABLE WITH MAPS >65. SPO2 >94% ON RA. RECTAL TUBE PATENT AND DRAINING DARK STOOL TO GRAVITY. PATIENT USES URINAL WITH ASSISTANCE. SACRAL WOUND DRESSING WAS CHANGED AND THE PATIENT WAS TURNED HARD TO THE RIGHT AND LEFT THROUGHT THE SHIFT. WAFFLE OVERLAY ADDED TO BED TO RELIEVE MORE PRESSURE. PATIENT TOLERATES THIS WELL. LEFT BKA DRESSING CHANGED THIS SHIFT. SEE WOUND CARE AND INCISION NOTES FOR SPECIFIC DRESSING TYPES. AMIODARONE DRIP RUNNING PER EMAR.
[2024-11-26] MEDS ORDERED: Banana Flakes/Tos 1 EA Powder Pack PO SCH (21:00)
[2024-11-27] VITALS (11 sets, daily range): BP systolic 91–128; BP diastolic 55–74
[2024-11-27 03:45] LABS: BASOPHILS ABSOLUTE AUTO 0.02 K/mm3 (0.00-0.23); BASOPHILS PERCENT AUTO 0 % (0-2); EOSINOPHILS ABSOLUTE AUTO 0.16 K/mm3 (0.00-0.68); EOSINOPHILS PERCENT AUTO 3 % (0-6); Hematocrit 20.9 % (37.0-53.0); Hemoglobin 6.8 g/dL (13.5-17.5); IMMATURE GRAN ABSOLUTE AUTO 0.04 K/mm3 (0.00-0.10); IMMATURE GRAN PERCENT AUTO 1 % (0-1); LYMPHOCYTES ABSOLUTE AUTO 1.60 K/mm3 (0.84-5.20); LYMPHOCYTES PERCENT AUTO 25 % (21-46); MONOCYTES ABSOLUTE AUTO 0.42 K/mm3 (0.16-1.47); MONOCYTES PERCENT AUTO 6 % (4-13); Mean Corpuscular HGB Conc 32.5 g/dL (31.5-36.5); Mean Corpuscular Volume 95 fL (80-100); NEUTROPHILS ABSOLUTE AUTO 4.29 K/mm3 (1.96-9.15); NEUTROPHILS PERCENT AUTO 66 % (41-73); NRBC ABSOLUTE 0.02 K/mm3 (0.00-0.02); NRBC Auto 0.3 /100 WBC (0.0-0.2); Platelet Count 73 K/mm3 (150-400); RDW Coefficient Variation 15.5 % (11.7-14.2); RDW Standard Deviation 50.4 fL (35.1-46.3)
[2024-11-27 04:02] LABS: Magnesium, Blood 1.4 mg/dL (1.6-2.4)
[2024-11-27 04:03] LABS: Anion Gap 8.0 mmol/L (3-11); Blood Urea Nitrogen 16.0 mg/dL (8-24); CO2, Blood 28.0 mmol/L (21-32); Calcium, Blood 7.3 mg/dL (8.5-10.1); Chloride, Blood 100.0 mmol/L (98-108); Creatinine, Blood 0.67 mg/dL (0.60-1.20); Glucose, Blood 114.0 mg/dL (70-99); Potassium, Blood 3.5 mmol/L (3.5-5.5); Sodium, Blood 132.0 mmol/L (136-145)
--- NOTE | 2024-11-27 04:27 | NUR ---
END OF CARDIOVASCULAR PHYSICIAN ASSISTANT SUMMARY: PATIENT ALERT AND ORIENT X4. MOVES BILATERAL UPPER EXTREMITIES AND BILATERAL THIGHS. CONTINUES BEDREST. WORKING WITH PT/OT ON MOBILITY. PER PATIENT, SOMEONE IS BRINGING PROSTETIC LEG FROM HOME SOMETIME TODAY (11/27/24). AFIBB TRHROUGHOUT SHIFT WITH RATE 70S-90S. REPORTS NO CP/DISCOMFORT THIS SHIFT. BP MAINTAIN MAP GOAL OF SBP >60. ROOM AIR. FLEXI SEAL IN PLACE AND DRAINING DARK BROWN LIQUID STOOL. TOLERATING REGULAR DIET. MALE PURWICK PLACED FOR URINE OUTPUT AND WOUND CARE PROTECTING. SACRAL WOUND CARE PROVIDED. PREMEDICATED PRIOR TO WOUND CARE CONTINUES TO REPORT LARGE AMOUNTS OF PAIN WITH WOUND CARE DESPITE PRE-MEDICATION. AM H/H 6.8/20.9, K 3.5, MAG 1.4. NOTIFIED AND AWAITING ORDERS. SAFETY MAINTAINED. ALL NEEDS ADRESSED THEY AROSE.
[2024-11-27] MEDS ORDERED: Magnesium Sulf 2 GM/Water 50ML 50 ML IV ONE (05:10)
--- NOTE | 2024-11-27 10:30 | NUR ---
TRANSFER ASSESSMENT: PT ARRIVED TO PCU 15 APPROX 0900. A/O X4, PLEASANT AND COOPERATIVE WITH CARE, ABLE TO COMMUNICATE NEEDS. BLOOD, POTASSIUM, AND ABX RUNNING. ARRIVED WITH RECTAL TUBE IN PLACE AND DRAINING DARK SOFT, NONFORMED STOOL, PUREWICK IN PLACE. PT WET ON ARRIVAL, BED BATH GIVEN, BEDDING AND PUREWICK CHANGED. SACRAL BANDAGE WET, REMOVED, WOUND CLEANED, UPDATED PHOTOS TAKEN, AND REDRESSED USING PETROLEUM DRESSING AND ABD BANDAGES. PT CRIED OUT IN PAIN DURING WOUND CARE, TREATED WITH FENTANYL PER EMAR, ON REASSESSMENT PT STATES PAIN IS 9-10, HOWEVER USING THE FACES SCALE PAIN IS RATED AT A 3.
[2024-11-27] MEDS ORDERED: Oxycodone HCl20 M1 PO (10:49)
[2024-11-27 11:55] LABS: Hematocrit 26.0 % (37.0-53.0); Hemoglobin 8.6 g/dL (13.5-17.5)
--- NOTE | 2024-11-27 18:36 | NUR ---
SHIFT SUMMARY: A/O X4, ABLE TO COMMUNICATE NEEDS, USES CALL LIGHT APPROPRIATELY, DIFFICULTY PROCESSING HIS AMPUTATION AND THE LOSS OF INDEPENDENCE, WITHDRAWS WHEN TALKING ABOUT DC'ING TO A SNF, PT STATES HE IS GREIVING THE LOSS. SPO2 >92% ON RA, DENIES SOB, OCCASSIONAL COUGH. NSR W/PAC & PV'S, HRR 90'S-110'S, HGB INC. AFTER BLOOD TRANSFUSION, DENIES CHEST PAIN OR PRESSURE. PT IS DEPENDENT W/2 PERSON ASSIST. PUREWICK IN PLACE WITH LIGHT SUCUTION, FLEXISEAL IN PLACE AND PATENT WITH DARK, SOFT, NONFORMED STOOL COLLECTING IN BAG, SUSPECTED GIB. TUBE AND PUREWICK IN PLACE TO KEEP EXCORIATED GROIN WOUND CLEAN, SEE PHOTOS IN CHART FOR WOUNDS.
[2024-11-28] VITALS (7 sets, daily range): BP systolic 98–161; BP diastolic 53–107
[2024-11-28 03:56] LABS: BASOPHILS ABSOLUTE AUTO 0.01 K/mm3 (0.00-0.23); BASOPHILS PERCENT AUTO 0 % (0-2); EOSINOPHILS ABSOLUTE AUTO 0.16 K/mm3 (0.00-0.68); EOSINOPHILS PERCENT AUTO 3 % (0-6); Hematocrit 24.0 % (37.0-53.0); Hemoglobin 7.9 g/dL (13.5-17.5); IMMATURE GRAN ABSOLUTE AUTO 0.07 K/mm3 (0.00-0.10); IMMATURE GRAN PERCENT AUTO 1 % (0-1); LYMPHOCYTES ABSOLUTE AUTO 1.49 K/mm3 (0.84-5.20); LYMPHOCYTES PERCENT AUTO 23 % (21-46); MONOCYTES ABSOLUTE AUTO 0.37 K/mm3 (0.16-1.47); MONOCYTES PERCENT AUTO 6 % (4-13); Mean Corpuscular HGB Conc 32.9 g/dL (31.5-36.5); Mean Corpuscular Volume 93 fL (80-100); NEUTROPHILS ABSOLUTE AUTO 4.40 K/mm3 (1.96-9.15); NEUTROPHILS PERCENT AUTO 68 % (41-73); NRBC ABSOLUTE 0.00 K/mm3 (0.00-0.02); NRBC Auto 0.0 /100 WBC (0.0-0.2); Platelet Count 76 K/mm3 (150-400); RDW Coefficient Variation 15.9 % (11.7-14.2); RDW Standard Deviation 51.0 fL (35.1-46.3)
[2024-11-28 04:23] LABS: Magnesium, Blood 1.5 mg/dL (1.6-2.4)
[2024-11-28 04:24] LABS: Alanine Aminotransfer (ALT/SGP 70.0 U/L (12-78); Albumin, Blood 1.5 g/dL (3.4-5.0); Albumin/Globulin Ratio 0.4 (0.8-1.8); Anion Gap 6.0 mmol/L (3-11); Aspartate Aminotrans (AST/SGOT 65.0 U/L (12-37); Bilirubin, Total 0.7 mg/dL (0.1-1.0); Blood Urea Nitrogen 14.0 mg/dL (8-24); CO2, Blood 29.0 mmol/L (21-32); Calcium, Blood 7.2 mg/dL (8.5-10.1); Chloride, Blood 99.0 mmol/L (98-108); Creatinine, Blood 0.6 mg/dL (0.60-1.20); Globulin, Blood 4.2 g/dL (2.2-4.0); Glucose, Blood 101.0 mg/dL (70-99); Potassium, Blood 3.6 mmol/L (3.5-5.5); Sodium, Blood 130.0 mmol/L (136-145); Total Protein, Blood 5.7 g/dL (6.4-8.2)
[2024-11-28] MEDS ORDERED: Magnesium Sulf 2 GM/Water 50ML 50 ML IV ONE (05:25)
--- NOTE | 2024-11-28 06:09 | NUR ---
SHIFT SUMMARY PT A&O X4, HES FORGETFUL AT TIMES. HR IN THE 90'S, SR-ST WITH PVC'S AND PAC'S. HE DENIES ANY CP/PRESSURE, SBP SOFT IN THE 100'S, MAP >65. Sp02 >92% ON RA, DENIES ANY SOB. PT HAS PUREWICK IN PLACE, DRAINING YELLOW URINE. PT ALSO WITH RECTAL TUBE, DRAINING LOOSE, NONFORMED, DARK STOOL. PT DENIES ANY N/V. PT HAS PRETTY EXTENSIVE WOUNDS ON HIS CONNER AREA AND SACRUM. WOUND CARE PROVIDED PER ORDERS. DRESSING CHANGED TWICE T/O SHIFT. PT S/P L BKA ON 11/[address], C/D/I. PT HAVING SIGNIFICANT PAIN FROM WOUNDS AND LEFT BKA, MEDICATING PER EMAR. THIS RN HAD LONG CONVERSATION MULTIPLE TIMES T/O SHIFT ON BENEFITS OF PUREWICK AND RECTAL TUBE WITH THE CONDITION OF THE PTS SKIN. AT THIS TIME PT RESTING IN BED. CALL LIGHT IN REACH. WILL MONITOR PT AND REPORT TO ONCOMING NURSE. MORNING LAB SHOWED HGB OF 7.9 AND MAGNESIUM OF 1.5. NOTIFIED, MAGNESIUM INFUSING PER EMAR.
[2024-11-28 10:30] LABS: HEP-IND THROMBOCYTOPEN PF4,IGG 0.044 OD (<=0.399)
[2024-11-28] MEDS ORDERED: FentaNYL Citrate 50 MCG/ML 2 ML Injection IV PRN (11:10)
[2024-11-28 16:33] LABS: Hematocrit 24.7 % (37.0-53.0); Hemoglobin 8.2 g/dL (13.5-17.5)
--- NOTE | 2024-11-28 18:33 | NUR ---
SHIFT SUMMARY: A/O X4, ABLE TO COMMUNICATE NEEDS, ANXIETY AND IRRITABILITY INCREASE WITH PAIN, ALTERED PAIN MANAGEMENT SCHEDULE FOR PT COMFORT AND DURING WOUND CARE, PT ANXIETY AND IRRITABILITY IMPROVED WITH NEW PAIN MANAGEMENT. HRR 70S-90S, NSR W/PVC'S/PAC'S, DENIES CHEST PAIN OR PRESSURE. SPO2 >92% ON RA, OCCASIONAL COUGH, MEDICATED PER EMAR, LUNG SOUNDS CTA BUT DIM AT BASES. PUREWICK IN PLACE AND DRAINING TO LIGHT SUCTION, FLEXISEAL IN PLACE AND PATENT WITH DARK, SOFT, NONFORMED STOOL COLLECTING IN BAG, PT ENDORSED UNDERSTANDING OF CONTINUING PUREWICK AND FLEXISEAL DUE TO EXTENSIVE WOUNDS IN CONNER AREA, STOOL SAMPLE ORDERED BUT UNCOLLECTED THIS SHIFT. WOUND CARE PROVIDED ONE TIME THIS SHIFT, WOUND CLEANED WITH NS, MEDIHONEY APPLIED TO NECROTIC AREAS, WOUND PACKED WITH WET TO DRY, PETROLLIUM GAUZE PLACED ON EXCORIATED AREAS, COVERED WITH TWO ABD BANDAGES. L AKA DRESSING CDI. SEE PHOTOS IN CHART FOR WOUNDS. PT WATCHING TV WITH CALL LIGH WITHIN REACH.
[2024-11-29] VITALS (7 sets, daily range): BP systolic 91–151; BP diastolic 55–123
--- NOTE | 2024-11-29 06:21 | NUR ---
SHIFT SUMMARY PT A&O X4, COOPERATIVE TO CARE, IRRITABLE AT TIMES. HR IN THE 80'S, SR WITH PVC'S AND PAC'S. HE DENIES ANY CP/PRESSURE, SBP SOFT IN THE 90 S-100'S, MAP >65. Sp02 >92% ON RA, DENIES ANY SOB. PT HAS PUREWICK IN PLACE, DRAINING YELLOW URINE. PT ALSO WITH RECTAL TUBE, DRAINING LOOSE, NONFORMED, DARK STOOL. PT DENIES ANY N/V. PT HAS PRETTY EXTENSIVE WOUNDS ON HIS CONNER AREA AND SACRUM. WOUND CARE PROVIDED PER ORDERS. DRESSING CHANGED ONCE T/O SHIFT. PT S/P L BKA ON 11/[address]. PT DENIED WHEN ASKED IF ABLE TO CHANGE DRESSING. PT HAVING SIGNIFICANT PAIN OF SACRUM, CONNER AREA, AND LEFT BKA, MEDICATING PER EMAR. PT RESTING IN BED. CALL LIGHT IN REACH. WILL MONITOR PT AND REPORT TO ONCOMING NURSE.
[2024-11-29 06:58] LABS: BASOPHILS ABSOLUTE AUTO 0.02 K/mm3 (0.00-0.23); BASOPHILS PERCENT AUTO 1 % (0-2); EOSINOPHILS ABSOLUTE AUTO 0.10 K/mm3 (0.00-0.68); EOSINOPHILS PERCENT AUTO 2 % (0-6); Hematocrit 23.9 % (37.0-53.0); Hemoglobin 8.0 g/dL (13.5-17.5); IMMATURE GRAN ABSOLUTE AUTO 0.03 K/mm3 (0.00-0.10); IMMATURE GRAN PERCENT AUTO 1 % (0-1); LYMPHOCYTES ABSOLUTE AUTO 1.23 K/mm3 (0.84-5.20); LYMPHOCYTES PERCENT AUTO 30 % (21-46); MONOCYTES ABSOLUTE AUTO 0.26 K/mm3 (0.16-1.47); MONOCYTES PERCENT AUTO 6 % (4-13); Mean Corpuscular HGB Conc 33.5 g/dL (31.5-36.5); Mean Corpuscular Volume 93 fL (80-100); NEUTROPHILS ABSOLUTE AUTO 2.53 K/mm3 (1.96-9.15); NEUTROPHILS PERCENT AUTO 61 % (41-73); NRBC ABSOLUTE 0.00 K/mm3 (0.00-0.02); NRBC Auto 0.0 /100 WBC (0.0-0.2); Platelet Count 81 K/mm3 (150-400); RDW Coefficient Variation 16.0 % (11.7-14.2); RDW Standard Deviation 51.8 fL (35.1-46.3)
[2024-11-29 07:32] LABS: Anion Gap 7.0 mmol/L (3-11); Blood Urea Nitrogen 17.0 mg/dL (8-24); CO2, Blood 29.0 mmol/L (21-32); Calcium, Blood 7.3 mg/dL (8.5-10.1); Chloride, Blood 101.0 mmol/L (98-108); Creatinine, Blood 0.56 mg/dL (0.60-1.20); Glucose, Blood 91.0 mg/dL (70-99); Potassium, Blood 3.7 mmol/L (3.5-5.5); Sodium, Blood 133.0 mmol/L (136-145)
[2024-11-29] MEDS ORDERED: HYDROmorphone HCl/Pf 1MG SYR IV PRN (08:55)
[2024-11-29 12:16] LABS: Campylobacter Sp Not Detected (NOT DETECT); E. Coli O157 Not Detected (NOT DETECT); Enteroaggregative E. coli-EAEC Not Detected (NOT DETECT); Enteropathogenic E. coli-EPEC Not Detected (NOT DETECT); Enterotoxigenic E. coli-ETEC Not Detected (NOT DETECT); Salmonella Sp Not Detected (NOT DETECT); Shiga Toxin-prod E. coli-STEC Not Detected (NOT DETECT); Shigella/Enteroin E. coli-EIEC Not Detected (NOT DETECT); Vibrio Sp Not Detected (NOT DETECT)
[2024-11-29 13:32] LABS: Stool Occult Blood Guaiac 1 Pos (Neg)
--- NOTE | 2024-11-29 16:10 | NUR ---
1150 PALLIATIVE CARE CONSULT: CONSULT RECIEVED FOR ADVANCE CARE PLANNING, MEDICALLY FRAGILE. SIGNIFICANT WOUNDS. CALL FROM PRIMARY RN TO MEET WITH PT BECAUSE PROVIDER HAD CONVERSATION WITH PT THIS MORNING ABOUT HOSPICE BECAUSE PT INSISTING HE GOES HOME PRIOR TO BEING MEDICALLY STABLE AND READY FOR DISCHARGE. SPOKE TO DR. MARIE, PRIMARY RN AND REVIEWED MEDICAL RECORD PRIOR TO VISIT. MET WITH PT IN HIS ROOM. PT IS AWAKE, ABLE AND AGREEABLE TO HAVE CONVERSATION. DISCUSSED CONCERNS OF PT WHY HE WANTS TO LEAVE PRIOR TO BEING MEDICALLY STABLE. PT STATES HE NEEDS TO GO TO THE BANK TO PAY HIS BILLS, MOST CONCERNED ABOUT HIS RENT BECAUSE HE IS ALREADY A MONTH BEHIND. ATTEMPTED TO ASSIST WITH TROUBLE SHOOTING HIS CONCERNS. STATES HE HAS A SON BUT IS UNABLE AND PT IS UNWILLING TO ASK FOR HIS HELP. HE HAS A FREIND/NEIGHBOR BUT IS ALSO UNWILLING TO ASK FOR HIS ASSISTANCE. PT CONTINUED TO BE INSISTENT ON LEAVING EVEN IF HE HAS TO LEAVE AMA. DISCUSSED RISKS OF LEAVING AMA-INFECTION, SEPSIS, , WORSENING OF WOUNDS REQUIRING MORE SURGERY. PT CONTINUED TO BE INSISTENT. PT ASKED IF HE WOULD WANT TO COME BACK TO THE HOSPITAL FOR TREATMENT IF HE HAD TO AND HE STATED "NO, I DON'T WANT TO COME BACK HERE". SUGGESTED HOSPICE SERVICES OPTION SINCE HE IS UNWILLING TO COMPLETE HIS TREATMENT. EDUCATED PT ON HOSPICE BENEFIT. PT IS AGREEABLE TO HOSPICE SERVICES. HE HAS NO PREFERENCE ON AGENCY HE JUST WANTS TO DISCHARGE SOON POSSIBLE. DISCUSSED CONCERNS OF PT LIVING ALONE. PT STATES HIS SON CAN HELP SOMETIMES. PT IS NOT WORRIED. PT STATES HE SELF TRANSPORTS BY SLIDING HIMSELF FROM BED TO WHEELCHAIR. HE USES URINAL AT HOME AND IS ABLE TO GET MICROWAVABLE FOOD. HE CALLS [employer] WHEN HE NEEDS TO GO PLACES. PT REPORTS HIS PAIN IS MANAGED, DENIES NAUSEA, DECREASED APPETITE, SOB. HE IS ON OXYGEN RIGHT NOW. UPDATED PRIMARY RN, DR. MARIE AND CARE MANAGEMENT WITH PT CHOICES.
--- NOTE | 2024-11-29 18:25 | NUR ---
SHIFT SUMMARY: A/O X4, ABLE TO COMMUNICATE NEEDS, USES CALL LIGHT APPROPRIATELY, ANXIETY AND IRRITABILITY INCREASE WITH PAIN/WOUND CARE. HRR 80'S-90'S, NSR W/PVC'S, DENIES CHEST PAIN OR PRESSURE. SPO2 >92% ON RA, DID NOT REQUEST PRN COUGH MEDICATION THIS SHIFT. PUREWICK IN PLACE AND DRAINING TO LIGHT SUCTION, SHORT DC'D FLEXISEAL AFTER ADDING IMODIUM TO EMAR. WOUND CARE PROVIDED THIS SHIFT TO CONNER AREA, SACRUM, AND L BKA STUMP. UPDATED PHOTOS IN CHART FOR L BKA. PALLIATIVE CARE MET WITH PT TODAY AND PT DECIDED TO DISCHARGE ON HOSPICE, CASE FORGE OPERATOR.
[2024-11-30] VITALS: BP 90/62
[2024-11-30 03:58] VITALS: BP 99/64
--- NOTE | 2024-11-30 06:05 | NUR ---
SHIFT SUMMARY PT A&O X4, COOPERATIVE TO CARE, IRRITABLE AT TIMES. HR IN THE 70'S-80'S, SR WITH PVC'S AND PAC'S. HE DENIES ANY CP/PRESSURE, SBP STABLE, OCCASIONAL READINGS OF SP IN THE 90'S BUT MAP >65. Sp02 >92% ON RA, DENIES ANY SOB. PT WAS BRIEFLY PLACED ON 2L VIA NC AFTER RECEIVING IV PAIN MEDS, PT ON RA AT THIS TIME. PT HAS PUREWICK IN PLACE, DRAINING YELLOW URINE. PT HAD RECTAL TUBE REMOVED AT START OF SHIFT PT HAS ONLY HAD A SMALL BM T/O SHIFT. PT DENIES ANY N/V. PT HAS PRETTY EXTENSIVE WOUNDS ON HIS CONNER AREA AND SACRUM. WOUND CARE PROVIDED PER ORDERS. DRESSING CHANGED ONCE. PT S/P L BKA ON 11/[address], CHANGED DURING DAYSHIFT. PT CONTINUES TO HAVE PAIN OF SACRUM, CONNER AREA, AND LEFT BKA, MEDICATING PER EMAR. PTS PAIN CONTROL SEEMS TO BE IMPROVED FROM PRIOR SHIFT. PT RESTING IN BED. CALL LIGHT IN REACH. WILL MONITOR PT AND REPORT TO ONCOMING NURSE.
[2024-11-30 07:15] VITALS: BP 104/59
[2024-11-30 07:26] LABS: Hematocrit 26.9 % (37.0-53.0); Hemoglobin 8.4 g/dL (13.5-17.5)
--- NOTE | 2024-11-30 07:54 | NUR ---
ASSUMPTION NOTE; THIS RN TO ASSUME CARE OF PATIENT. PATIENT AWAKE IN BED AND GETTING LABS DRAWN. PATIENT AWARE PLAN WILL BE TO SEE IF DISCHARGE WITH HOSPISCE IS SET FOR TODAY OR TOMORROW. AWARE THAT WOUND CHANGE WILL HAPPEN TODAY WELL. PATIENT STATED HE WOULD LIKE TO HOLD OFF ON PAIN MEDS UNTIL SPEAKING WITH THE DOCTOR SO HE IS MORE AWAKE. PATIENT HAS CALL LIGHT WIHTIN REACH, BED IN LOWEST POSITION AND AWAITING FOR BREAKFAST. STATES NOTHING ELSE IS NEEDED AT THIS TIME.
[2024-11-30] MEDS ORDERED: AMIODARONE HCL400 M2 PO (08:37)
[2024-11-30] MEDS ORDERED: Amiodarone HCl200 MG PO (08:39)
[2024-11-30] MEDS ORDERED: JUVEN PACKET1 EAC3 PO (08:40)
[2024-11-30] MEDS ORDERED: BANATROL PLUS1 EAC1 PO (08:40)
[2024-11-30] MEDS ORDERED: TUSSIN MUC100 MG/5 M PO (08:42)
[2024-11-30] MEDS ORDERED: DIPATR PO (08:43)
[2024-11-30] MEDS ORDERED: Xylocaine5 M1 MT (08:44)
[2024-11-30] MEDS ORDERED: NYSTATIN100000 U10 MT (08:44)
[2024-11-30] MEDS ORDERED: DIPHENHYDR12.5 MG/5 MT (08:47)
[2024-11-30] MEDS ORDERED: GI COCKTAIL MT (08:47)
[2024-11-30] MEDS ORDERED: LOPE2C PO (08:48)
[2024-11-30] MEDS ORDERED: PRED5EL PO (08:48)
[2024-11-30] MEDS ORDERED: PROBIOTIC ACID1 EAC8 PO (08:49)
[2024-11-30] MEDS ORDERED: PANT40 PO (08:49)
[2024-11-30] MEDS ORDERED: METO25 PO (08:49)
--- NOTE | 2024-11-30 10:03 | NUR ---
MD ROUNDED: MD ROUNDED AND SPOKE WITH PATIENT,DISCHARE ORDER IS IN AND HOSPICE NURSE TO COME AND CHAT WITH HIM WELL. PATIENT AWARE AND AWAITING TRANSPORTATION.
[2024-11-30 11:26] VITALS: BP 132/72
--- NOTE | 2024-11-30 11:39 | NUR ---
WOUND CARE COMPLETED PRIOR TO SET FOR DSICHARGE. PATIENT TOLERATED IT WELL WITHOUT NEEDING ANY PAIN MEDICATIONS.
--- NOTE | 2024-11-30 12:40 | NUR ---
DISCHARGE NOTE: PATIENT WAS DISCHARGED WITH HOSPICE AND TRANSPORTED HOME BY AMBULANCE. NEW MEDICATIONS WERE SENT TO [facility] AND FRIEND WAS AT [facility] AND TOOK ALL PERSONAL BELONGINGS WITH HIM. HE IS TO DIGITAL ACCOUNT MANAGER PATIENTS MEDCIATION AT [facility] FOR HIM. WOUND CARE WAS DONE AND IV TAKEN OUT. TELE TAKEN OFF WELL.
== END 2024-11-30 12:14 | disposition hospice, home (50) | DRG 853 ==
LOC: ER 16:13 → ERHOLD 20:37 → ICUE 20:37 → PCU 20:37 → ICUE 22:24 → PCU 11-27 09:10
PROVIDERS: Family Medicine; Internal Medicine; Radiology Diagnostic Radiology; Student in an Organized Health Care Education/Training Program; ADMIT Student in an Organized Health Care Education/Training Program
PROC: 047L3DZ Dilation of Left Femoral Artery with Intraluminal Device, Percutaneous Approach (ICD-10-PCS; principal; 2024-11-23)
PROC: 047N3ZZ Dilation of Left Popliteal Artery, Percutaneous Approach (ICD-10-PCS; 2024-11-23)
PROC: B44LZZ3 Ultrasonography of Femoral Artery, Intravascular (ICD-10-PCS; 2024-11-23)
PROC: 30233N1 Transfusion of Nonautologous Red Blood Cells into Peripheral Vein, Percutaneous Approach (ICD-10-PCS; 2024-11-23)
PROC: 3E03329 Introduction of Other Anti-infective into Peripheral Vein, Percutaneous Approach (ICD-10-PCS; 2024-11-23)
PROC: 0Y6J0Z1 Detachment at Left Lower Leg, High, Open Approach (ICD-10-PCS; 2024-11-24)
PROC: 0HB8XZZ Excision of Buttock Skin, External Approach (ICD-10-PCS; 2024-11-24)
DX: A41.9 Sepsis, unspecified organism (principal); M72.6 Necrotizing fasciitis; E87.1 Hypo-osmolality and hyponatremia; N17.9 Acute kidney failure, unspecified; I70.262 Atherosclerosis of native arteries of extremities with gangrene, left leg; K92.1 Melena; E87.20 Acidosis, unspecified; L03.116 Cellulitis of left lower limb; L97.829 Non-pressure chronic ulcer of other part of left lower leg with unspecified severity; Z59.01 Sheltered homelessness; R65.20 Severe sepsis without septic shock; L89.320 Pressure ulcer of left buttock, unstageable; L89.310 Pressure ulcer of right buttock, unstageable; D63.1 Anemia in chronic kidney disease; F17.210 Nicotine dependence, cigarettes, uncomplicated; E87.5 Hyperkalemia; I25.10 Atherosclerotic heart disease of native coronary artery without angina pectoris; E78.5 Hyperlipidemia, unspecified; Z60.2 Problems related to living alone; F41.9 Anxiety disorder, unspecified; M54.9 Dorsalgia, unspecified; G89.29 Other chronic pain; I12.9 Hypertensive chronic kidney disease with stage 1 through stage 4 chronic kidney disease, or unspecified chronic kidney disease; N18.30 Chronic kidney disease, stage 3 unspecified; D50.9 Iron deficiency anemia, unspecified; Z98.890 Other specified postprocedural states; Z89.511 Acquired absence of right leg below knee; Z95.5 Presence of coronary angioplasty implant and graft; Z79.02 Long term (current) use of antithrombotics/antiplatelets; Z79.899 Other long term (current) drug therapy; Z79.01 Long term (current) use of anticoagulants; Z71.6 Tobacco abuse counseling
CPT/HCPCS: 36415; 36430; 71260; 73701; 76937; 80048; 80053; 80202; 82270; 82330; 82803; 83605; 83735; 83880; 84100; 84132; 84443; 84484; 85014; 85018; 85025; 85610; 85651; 85730; 86022; 86141; 86850; 86900; 86901; 86923; 87040; 87071; 87075; 87077; 87186; 87205; 87507; 88307; 93005; 93010; 94760; 96374-59; 97110; 97161; 97166; 97535; 99152; 99153; 99285-25; A9270; C1725; C1760; C1769; C1874; C1887; C1894; C8929; J0282; J0692; J1160; J1171; J1644; J2185; J2250; J2371; J2405; J2704; J3010; J3373; J3475; J3480; J7030; J7040; J7050; J7070; J7120; P9016; Q9957; Q9967